=== PATIENT | male | born 1985 | race Caucasian/White ===

== ENCOUNTER 2017-09-23 11:09 | Inpatient (IN) | payer MEDICAID ==
[~2017-09-23] VITALS: Ht 175.3 cm; Wt 119.4 kg
[2017-09-23] MEDS ORDERED: ASPIRIN 81MG TABLET PO STA (11:21)
[2017-09-23] MEDS ORDERED: FUROSEMIDE 40MG/4ML VIAL IV STA (11:21)
[2017-09-23] MEDS ORDERED: NITROGLYCERIN OINT 1GM/INCH UDPKT TD STA (11:21)
[2017-09-23 11:49] LABS: BASOPHILS % 0.5 % (0.0-2.0); EOSINOPHILS % 0.9 % (0.0-5.0); HEMATOCRIT. 38.1 % (42.0-52.0); LYMPHOCYTES % 9.6 % (20.0-50.0); MEAN CORPUSCULAR VOLUME 69.3 fL (80.0-94.0); MONOCYTES % 14.9 % (2.0-8.0); NEUTROPHILS % 74.1 % (40.0-76.0); PLATELET 411 x1000/uL (130-400); RED BLOOD CELL COUNT 5.49 mill/uL (4.7-6.1); RED CELL DISTRIBUTION WIDTH 21.4 % (11.6-14.6)
[2017-09-23 11:50] LABS: BG BASE EXCESS 0.3 mmol/L (-2.0-2.0); BG BILEVEL POS AIRWAY PRESSURE 15/5; BG CARBOXYHEMOGLOBIN 1.7 % (0.5-1.5); BG DEOXYHEMOGLOBIN 2.4 % (0.0-5.0); BG HCO3 ACT 24.4 mmol/L (22.0-26.0); BG METHEMOGLOBIN 0.4 % (0.0-1.5); BG OXYGEN SATURATION 97.5 % (92.0-98.5); BG OXYHEMOGLOBIN 95.5 % (94.0-97.0); BG PCO2 37.3 mmHg (35.0-45.0); BG PH 7.433 (7.350-7.450); BG PO2 96.5 mmHg (75.0-100.0); BG SAMPLE SITE RIGHT RADIAL; BG TOTAL HEMOGLOBIN 12.4 g/dL (12.0-18.0); BG VENT MODE MASK - BIPAP; BG VENT RATE 20 set
[2017-09-23 11:56] LABS: INR 1.6; PARTIAL THROMBOPLASTIN TIME 31.3 sec (23.4-31.0); PROTHROMBIN TIME 16.8 sec (9.4-11.6)
[2017-09-23 12:03] LABS: CHLORIDE 97 mEq/L (98-107)
[2017-09-23 12:09] LABS: TROPONIN I 0.79 ng/mL (0.00-0.04)
[2017-09-23 12:35] LABS: PLATELET ESTIMATE INCREASED
[2017-09-23] MEDS ORDERED: IPRATROPIUM/ALBUTEROL 0.5-3(2.5)MG/3ML NEB HHN PRN (13:00)
[2017-09-23] MEDS ORDERED: DIPHENHYDRAMINE 50MG/ML VIAL IV PRN (13:45)
[2017-09-23] MEDS ORDERED: HYDROCODONE/ACETAMINOPHEN 5/325MG TABLET PO PRN (13:45)
[2017-09-23] MEDS ORDERED: IPRATROPIUM/ALBUTEROL 0.5-3(2.5)MG/3ML NEB INH PRN (13:45)
[2017-09-23] MEDS ORDERED: CLONIDINE 0.1MG TABLET PO PRN (13:45)
[2017-09-23] MEDS ORDERED: ONDANSETRON HCL 4MG/2ML VIAL IV PRN (13:45)
[2017-09-23 15:20] LABS: HEPATITIS B SURFACE ANTIGEN NEGATIVE
[2017-09-23 15:34] LABS: CREATINE KINASE MB FRACTION 2.9 ng/mL (0.5-3.6)
[2017-09-23 15:39] LABS: TROPONIN I 0.82 ng/mL (0.00-0.04)
[2017-09-23 15:48] LABS: HEPATITIS B CORE AB IGM NEGATIVE
[2017-09-23 15:50] LABS: HEPATITIS A AB IGM NEGATIVE (NEGATIVE)
[2017-09-23] MEDS ORDERED: ENOXAPARIN 150MG/ML SYR SUBCUT ONE (16:00)
[2017-09-23 16:48] VITALS: BP 154/93
[2017-09-23 17:00] VITALS: BP 154/93
[2017-09-23] MEDS ORDERED: INFLUENZA VIRUS VACCINE 0.5ML SYR IM ONE (17:30)
[2017-09-23] MEDS ORDERED: PNEUMOCOCCAL 23-VAL P-SAC VAC 0.5 ML IM ONE (17:30)
[2017-09-23] MEDS: FUROSEMIDE 40MG/4ML VIAL IVP SCH (18:09)
[2017-09-23 20:00] VITALS: BP 149/68
[2017-09-23] MEDS: ACETAMINOPHEN 325MG TABLET PO PRN (20:37)
[2017-09-23 21:00] VITALS: BP 133/50
[2017-09-23] MEDS: IPRATROPIUM/ALBUTEROL 0.5-3(2.5)MG/3ML NEB HHN SCH (21:23)
[2017-09-23] MEDS: CARVEDILOL 6.25 MG TABLET PO SCH (21:37)
[2017-09-23 22:00] VITALS: BP 127/65
[2017-09-23 23:30] LABS: CLARITY URINE CLEAR (CLEAR); COLOR URINE YELLOW (YELLOW); KETONES URINE NEGATIVE (NEGATIVE); LEUKOCYTE ESTERASE URINE NEGATIVE (NEGATIVE); NITRITE URINE NEGATIVE (NEGATIVE); OCCULT BLOOD URINE NEGATIVE (NEGATIVE); PROTEIN URINE NEGATIVE (NEGATIVE)
[2017-09-24] VITALS (15 sets, daily range): BP systolic 101–154; BP diastolic 51–98
[2017-09-24 00:21] LABS: *AMPHETAMINES SCREEN URINE NEGATIVE (NEGATIVE); *BARBITURATES SCREEN URINE NEGATIVE (NEGATIVE); *BENZODIAZEPINES SCREEN URINE NEGATIVE (NEGATIVE); *COCAINE SCREEN URINE NEGATIVE (NEGATIVE); CANNABINOID URINE SCREEN NEGATIVE (NEGATIVE); METHADONE URINE SCREEN NEGATIVE (NEGATIVE); OPIATES URINE SCREEN NEGATIVE (NEGATIVE); PHENCYCLIDINE URINE SCREEN NEGATIVE (NEGATIVE)
[2017-09-24] MEDS: IPRATROPIUM/ALBUTEROL 0.5-3(2.5)MG/3ML NEB HHN SCH ×6 (00:41→21:06)
[2017-09-24 05:56] LABS: INR 1.6; PROTHROMBIN TIME 16.8 sec (9.4-11.6)
[2017-09-24 06:24] LABS: HEMATOCRIT. 35.4 % (42.0-52.0); MEAN CORPUSCULAR HEMOGLOBIN 19.8 pg (28.0-32.0); MEAN CORPUSCULAR VOLUME 70.6 fL (80.0-94.0); MEAN PLATELET VOLUME 10.3 fl (7.4-10.4); PLATELET 348 x1000/uL (130-400); RED BLOOD CELL COUNT 5.02 mill/uL (4.7-6.1); RED CELL DISTRIBUTION WIDTH 21.1 % (11.6-14.6)
[2017-09-24] MEDS: FUROSEMIDE 40MG/4ML VIAL IVP SCH ×2 (06:57→17:24)
[2017-09-24 07:51] LABS: BG BILEVEL POS AIRWAY PRESSURE ST=15/5; BG CARBOXYHEMOGLOBIN 1.3 % (0.5-1.5); BG FRACTION INSPIRED OXYGEN 50; BG HCO3 ACT 30.9 mmol/L (22.0-26.0); BG METHEMOGLOBIN 0.3 % (0.0-1.5); BG OXYHEMOGLOBIN 96.4 % (94.0-97.0); BG PH 7.344 (7.350-7.450); BG PO2 105.8 mmHg (75.0-100.0); BG PRESSURE SUPPORT 10; BG SAMPLE SITE RIGHT RADIAL; BG VENT MODE MASK - BIPAP; BG VENT RATE 20 set
[2017-09-24] MEDS: CARVEDILOL 6.25 MG TABLET PO SCH ×2 (08:11→21:49)
[2017-09-24 08:17] LABS: PLATELET ESTIMATE NORMAL
[2017-09-24 08:53] LABS: CHLORIDE 99 mEq/L (98-107); HDL CHOLESTEROL 7 mg/dL (40-59); LDL CHOLESTEROL 44 mg/dL (5-100)
[2017-09-24] MEDS ORDERED: SODIUM CHLORIDE 0.9% 10ML VIAL ONE (13:04)
[2017-09-25] VITALS (27 sets, daily range): BP systolic 79–142; BP diastolic 40–101
[2017-09-25] MEDS: IPRATROPIUM/ALBUTEROL 0.5-3(2.5)MG/3ML NEB HHN SCH ×6 (00:46→20:21)
[2017-09-25 06:18] LABS: HEMATOCRIT. 33.5 % (42.0-52.0); HEMOGLOBIN. 9.6 g/dL (14.0-18.0); MEAN CORPUSCULAR HEMOGLOBIN 20.3 pg (28.0-32.0); MEAN CORPUSCULAR VOLUME 70.8 fL (80.0-94.0); MEAN PLATELET VOLUME 10.2 fl (7.4-10.4); PLATELET 385 x1000/uL (130-400); RED BLOOD CELL COUNT 4.73 mill/uL (4.7-6.1); RED CELL DISTRIBUTION WIDTH 20.7 % (11.6-14.6)
[2017-09-25] MEDS: FUROSEMIDE 40MG/4ML VIAL IVP SCH (06:22)
[2017-09-25 06:40] LABS: CHLORIDE 92 mEq/L (98-107)
[2017-09-25 08:41] LABS: BG BASE EXCESS 4.9 mmol/L (-2.0-2.0); BG CARBOXYHEMOGLOBIN 1.3 % (0.5-1.5); BG DEOXYHEMOGLOBIN 7.6 % (0.0-5.0); BG FRACTION INSPIRED OXYGEN 50; BG METHEMOGLOBIN 0.2 % (0.0-1.5); BG OXYGEN SATURATION 92.3 % (92.0-98.5); BG OXYHEMOGLOBIN 90.9 % (94.0-97.0); BG PCO2 53.4 mmHg (35.0-45.0); BG PH 7.382 (7.350-7.450); BG PO2 66.3 mmHg (75.0-100.0); BG SAMPLE SITE RIGHT RADIAL; BG VENT MODE MASK - VENTI
[2017-09-25] MEDS: CARVEDILOL 6.25 MG TABLET PO SCH ×2 (08:57→20:24)
[2017-09-25] MEDS ORDERED: MAGNESIUM 2 G PREMIX 50 ML IV ONE (10:30)
[2017-09-25] MEDS: LISINOPRIL 2.5MG TABLET PO SCH (10:45)
[2017-09-25] MEDS: ENOXAPARIN 40MG/0.4ML SYR SUBCUT SCH ×2 (10:46→20:23)
[2017-09-25] MEDS ORDERED: MAGNESIUM 2 G PREMIX 50 ML IV NR (12:00)
[2017-09-25] MEDS: CEFEPIME 1,000 MG in DEXTROSE 5% WATER 50 ML IV SCH ×2 (12:17→23:13)
[2017-09-25] MEDS ORDERED: METRONIDAZOLE 500 MG PREMIX 100 ML IV SCH (14:00)
[2017-09-25 14:09] LABS: BG BASE EXCESS 0.7 mmol/L (-2.0-2.0); BG CARBOXYHEMOGLOBIN 1.5 % (0.5-1.5); BG DEOXYHEMOGLOBIN 5.1 % (0.0-5.0); BG FRACTION INSPIRED OXYGEN 21; BG HCO3 ACT 27.2 mmol/L (22.0-26.0); BG METHEMOGLOBIN 0.3 % (0.0-1.5); BG OXYGEN SATURATION 94.8 % (92.0-98.5); BG OXYHEMOGLOBIN 93.1 % (94.0-97.0); BG PCO2 52.2 mmHg (35.0-45.0); BG PH 7.335 (7.350-7.450); BG SAMPLE SITE RIGHT BRACHIAL; BG TOTAL HEMOGLOBIN 11.1 g/dL (12.0-18.0); BG VENT MODE ROOM AIR
[2017-09-25 14:49] LABS: PLATELET ESTIMATE NORMAL
[2017-09-25] MEDS: METRONIDAZOLE 500 MG PREMIX 100 ML IV SCH ×2 (16:59→23:13)
[2017-09-26] VITALS (119 sets, daily range): BP systolic 76–170; BP diastolic 35–105
[2017-09-26] MEDS: IPRATROPIUM/ALBUTEROL 0.5-3(2.5)MG/3ML NEB HHN SCH ×6 (00:29→20:11)
[2017-09-26 05:31] LABS: HEMATOCRIT. 33.4 % (42.0-52.0); HEMOGLOBIN. 9.4 g/dL (14.0-18.0); MEAN CORPUSCULAR VOLUME 70.9 fL (80.0-94.0); PLATELET 398 x1000/uL (130-400); RED BLOOD CELL COUNT 4.71 mill/uL (4.7-6.1); RED CELL DISTRIBUTION WIDTH 21.4 % (11.6-14.6)
[2017-09-26 05:50] LABS: CHLORIDE 94 mEq/L (98-107)
[2017-09-26] MEDS ORDERED: EPINEPHRINE 0.1MG/ML (1:10,000) 10ML SYR ONE (07:37)
[2017-09-26] MEDS ORDERED: ETOMIDATE 2MG/ML 10ML VIAL IV ONE (07:37)
[2017-09-26] MEDS ORDERED: SUCCINYLCHOLINE CHLORIDE 200MG/10ML VIAL IV ONE (07:37)
[2017-09-26] MEDS: METRONIDAZOLE 500 MG PREMIX 100 ML IV SCH ×3 (08:30→23:31)
[2017-09-26 08:59] LABS: NUCLEATED RED BLOOD CELLS 2 /100 WBC; PLATELET ESTIMATE NORMAL
[2017-09-26] MEDS: CARVEDILOL 6.25 MG TABLET PO SCH ×2 (09:00→21:00)
[2017-09-26] MEDS: LISINOPRIL 2.5MG TABLET PO SCH (09:00)
[2017-09-26] MEDS: FUROSEMIDE 40MG/4ML VIAL IVP SCH (10:03)
[2017-09-26] MEDS: ENOXAPARIN 40MG/0.4ML SYR SUBCUT SCH (10:03)
[2017-09-26 10:11] LABS: BG BASE EXCESS 8.1 mmol/L (-2.0-2.0); BG BILEVEL POS AIRWAY PRESSURE ST=18/5; BG CARBOXYHEMOGLOBIN 1.2 % (0.5-1.5); BG DEOXYHEMOGLOBIN 3.7 % (0.0-5.0); BG FRACTION INSPIRED OXYGEN 45; BG HCO3 ACT 34.6 mmol/L (22.0-26.0); BG METHEMOGLOBIN 0.2 % (0.0-1.5); BG OXYGEN SATURATION 96.2 % (92.0-98.5); BG OXYHEMOGLOBIN 94.9 % (94.0-97.0); BG PH 7.386 (7.350-7.450); BG PO2 84.5 mmHg (75.0-100.0); BG PRESSURE SUPPORT 13; BG SAMPLE SITE RIGHT RADIAL; BG TOTAL HEMOGLOBIN 10.7 g/dL (12.0-18.0); BG VENT MODE MASK - BIPAP; BG VENT RATE 24 set
[2017-09-26] MEDS: PROPOFOL 10MG/ML 100ML 100 ML IV PRN ×5 (12:26→23:47)
[2017-09-26] MEDS: CEFEPIME 1,000 MG in DEXTROSE 5% WATER 50 ML IV SCH ×2 (12:58→23:31)
[2017-09-26 13:26] LABS: BG BASE EXCESS 7.7 mmol/L (-2.0-2.0); BG CARBOXYHEMOGLOBIN 1.1 % (0.5-1.5); BG DEOXYHEMOGLOBIN 6.3 % (0.0-5.0); BG FRACTION INSPIRED OXYGEN 100; BG HCO3 ACT 33.9 mmol/L (22.0-26.0); BG METHEMOGLOBIN 0.2 % (0.0-1.5); BG OXYGEN SATURATION 93.6 % (92.0-98.5); BG OXYHEMOGLOBIN 92.4 % (94.0-97.0); BG PCO2 56.7 mmHg (35.0-45.0); BG PH 7.395 (7.350-7.450); BG PO2 68.9 mmHg (75.0-100.0); BG SAMPLE SITE RIGHT RADIAL; BG TIDAL VOLUME(mL) 550 mL; BG TOTAL HEMOGLOBIN 10.6 g/dL (12.0-18.0); BG VENT MODE VENT - A/C; BG VENT RATE 18 set
[2017-09-26] MEDS ORDERED: FENTANYL CITRATE/PF 500 MCG in SODIUM CHLORIDE 0.9% 40 ML IV PRN (14:30)
[2017-09-26] MEDS: NOREPINEPHRINE 16 MG in DEXT 5% WATER 234 ML IV PRN (14:36)
[2017-09-26 16:18] LABS: BG BASE EXCESS 6.9 mmol/L (-2.0-2.0); BG CARBOXYHEMOGLOBIN 1.2 % (0.5-1.5); BG DEOXYHEMOGLOBIN 2.5 % (0.0-5.0); BG FRACTION INSPIRED OXYGEN 60; BG HCO3 ACT 31.6 mmol/L (22.0-26.0); BG METHEMOGLOBIN 0.1 % (0.0-1.5); BG OXYGEN SATURATION 97.5 % (92.0-98.5); BG OXYHEMOGLOBIN 96.2 % (94.0-97.0); BG PCO2 45.4 mmHg (35.0-45.0); BG SAMPLE SITE RIGHT RADIAL; BG TIDAL VOLUME(mL) 550 mL; BG TOTAL HEMOGLOBIN 11.1 g/dL (12.0-18.0); BG VENT MODE VENT - A/C; BG VENT RATE 18 set
[2017-09-26] MEDS ORDERED: FAMOTIDINE 20MG TABLET PO SCH (17:00)
[2017-09-26] MEDS ORDERED: AMIODARONE HCL 50MG/ML 3ML VIAL IV ONE (22:15)
[2017-09-26] MEDS ORDERED: AMIODARONE HCL 150 MG in DEXT 5% WATER 100 ML IV NR (22:30)
[2017-09-26] MEDS ORDERED: AMIODARONE IN DEXTROSE,ISO-OSM 100 ML IV NR (22:30)
[2017-09-26] MEDS: AMIODARONE HCL 900 MG in DEXT 5% WATER 482 ML IV PRN (23:21)
[2017-09-27] VITALS (99 sets, daily range): BP systolic 84–133; BP diastolic 32–78
[2017-09-27 00:18] LABS: BG BASE EXCESS 8.9 mmol/L (-2.0-2.0); BG CARBOXYHEMOGLOBIN 0.9 % (0.5-1.5); BG DEOXYHEMOGLOBIN 0.3 % (0.0-5.0); BG FRACTION INSPIRED OXYGEN 100; BG HCO3 ACT 32.7 mmol/L (22.0-26.0); BG METHEMOGLOBIN 0.3 % (0.0-1.5); BG OXYGEN SATURATION 99.7 % (92.0-98.5); BG OXYHEMOGLOBIN 98.5 % (94.0-97.0); BG PCO2 41.7 mmHg (35.0-45.0); BG PH 7.512 (7.350-7.450); BG PO2 183.9 mmHg (75.0-100.0); BG SAMPLE SITE RIGHT RADIAL; BG TIDAL VOLUME(mL) 550 mL; BG TOTAL HEMOGLOBIN 10.8 g/dL (12.0-18.0); BG VENT MODE VENT - A/C; BG VENT RATE 18 set
[2017-09-27] MEDS: PROPOFOL 10MG/ML 100ML 100 ML IV PRN ×5 (01:49→23:47)
[2017-09-27] MEDS: IPRATROPIUM/ALBUTEROL 0.5-3(2.5)MG/3ML NEB HHN SCH ×6 (04:21→23:46)
[2017-09-27] MEDS: FENTANYL CITRATE/PF 1,000 MCG in SODIUM CHLORIDE 0.9% 80 ML IV PRN ×2 (06:50→23:42)
[2017-09-27 08:52] LABS: HEMATOCRIT 36.1 % (42.0-52.0); HEMOGLOBIN 10.3 g/dL (14.0-18.0); MEAN CORPUSCULAR VOLUME 70.1 fL (80.0-94.0); PLATELET 500 x1000/uL (130-400); RED BLOOD CELL COUNT 5.15 mill/uL (4.7-6.1); RED CELL DISTRIBUTION WIDTH 20.8 % (11.6-14.6)
[2017-09-27] MEDS: METRONIDAZOLE 500 MG PREMIX 100 ML IV SCH ×3 (08:53→23:42)
[2017-09-27 08:56] LABS: INR 1.6; PARTIAL THROMBOPLASTIN TIME 31.7 sec (23.4-31.0); PROTHROMBIN TIME 16.8 sec (9.4-11.6)
[2017-09-27 08:59] LABS: AMMONIA 52 uMol/L (<32); CHLORIDE 96 mEq/L (98-107); PHOSPHORUS 3.6 mg/dL (2.5-4.9)
[2017-09-27] MEDS: CARVEDILOL 6.25 MG TABLET PO SCH ×2 (09:00→21:00)
[2017-09-27] MEDS: LISINOPRIL 2.5MG TABLET PO SCH ×2 (09:00→09:24)
[2017-09-27] MEDS: FUROSEMIDE 40MG/4ML VIAL IVP SCH (09:24)
[2017-09-27] MEDS ORDERED: MAGNESIUM 4 G PREMIX 100 ML IV NR (09:30)
[2017-09-27 09:40] LABS: BG BASE EXCESS 5.3 mmol/L (-2.0-2.0); BG CARBOXYHEMOGLOBIN 0.5 % (0.5-1.5); BG DEOXYHEMOGLOBIN 1.5 % (0.0-5.0); BG FRACTION INSPIRED OXYGEN 90; BG HCO3 ACT 31.2 mmol/L (22.0-26.0); BG METHEMOGLOBIN 0.1 % (0.0-1.5); BG OXYGEN SATURATION 98.5 % (92.0-98.5); BG OXYHEMOGLOBIN 97.9 % (94.0-97.0); BG PCO2 52.2 mmHg (35.0-45.0); BG PH 7.394 (7.350-7.450); BG PO2 126.6 mmHg (75.0-100.0); BG SAMPLE SITE RIGHT RADIAL; BG TIDAL VOLUME(mL) 500 mL; BG TOTAL HEMOGLOBIN 10.8 g/dL (12.0-18.0); BG VENT MODE VENT - A/C; BG VENT RATE 14 set
[2017-09-27] MEDS ORDERED: POTASSIUM CHLORIDE INJ 40 MEQ in DEXT 5% WATER 250 ML IV NR (10:00)
[2017-09-27] MEDS: NOREPINEPHRINE 16 MG in DEXT 5% WATER 234 ML IV PRN (12:04)
[2017-09-27] MEDS: CEFEPIME 1,000 MG in DEXTROSE 5% WATER 50 ML IV SCH ×2 (12:45→23:42)
[2017-09-27] MEDS ORDERED: LIDOCAINE HCL 2% 5ML SYRINGE IV PRN (15:00)
[2017-09-27] MEDS ORDERED: LIDOCAINE 2G PREMIX 500 ML IV PRN (15:00)
[2017-09-27 17:11] LABS: CHLORIDE 97 mEq/L (98-107); PHOSPHORUS 2.8 mg/dL (2.5-4.9)
[2017-09-27] MEDS ORDERED: POTASSIUM CHLORIDE INJ 40 MEQ in DEXT 5% WATER 250 ML IV SCH (18:00)
[2017-09-27] MEDS ORDERED: MAGNESIUM 4 G PREMIX 100 ML IV SCH (18:00)
[2017-09-27] MEDS: AMIODARONE HCL 900 MG in DEXT 5% WATER 482 ML IV PRN (23:43)
[2017-09-27] MEDS: FAMOTIDINE 20MG/2ML VIAL IV SCH (23:46)
[2017-09-28] VITALS (100 sets, daily range): BP systolic 66–138; BP diastolic 30–85
[2017-09-28] MEDS: PROPOFOL 10MG/ML 100ML 100 ML IV PRN ×6 (03:47→23:24)
[2017-09-28] MEDS: IPRATROPIUM/ALBUTEROL 0.5-3(2.5)MG/3ML NEB HHN SCH ×5 (04:00→20:43)
[2017-09-28 04:39] LABS: HEMATOCRIT. 36.6 % (42.0-52.0); HEMOGLOBIN. 10.7 g/dL (14.0-18.0); MEAN CORPUSCULAR HEMOGLOBIN 20.3 pg (28.0-32.0); MEAN CORPUSCULAR VOLUME 69.7 fL (80.0-94.0); MEAN PLATELET VOLUME 9.1 fl (7.4-10.4); PLATELET 523 x1000/uL (130-400); RED BLOOD CELL COUNT 5.26 mill/uL (4.7-6.1); RED CELL DISTRIBUTION WIDTH 21.3 % (11.6-14.6)
[2017-09-28 05:06] LABS: CHLORIDE 98 mEq/L (98-107)
[2017-09-28] MEDS ORDERED: ACETAMINOPHEN 650MG SUPP PR PRN (06:30)
[2017-09-28] MEDS ORDERED: SODIUM BICARBONATE 4% (2.4MEQ) 5ML VIAL IV ONE (07:25)
[2017-09-28] MEDS: METRONIDAZOLE 500 MG PREMIX 100 ML IV SCH ×3 (07:56→23:16)
[2017-09-28 08:21] LABS: BG BASE EXCESS 8.9 mmol/L (-2.0-2.0); BG CARBOXYHEMOGLOBIN 1.1 % (0.5-1.5); BG DEOXYHEMOGLOBIN 3.6 % (0.0-5.0); BG FRACTION INSPIRED OXYGEN 70; BG HCO3 ACT 34.8 mmol/L (22.0-26.0); BG METHEMOGLOBIN 0.4 % (0.0-1.5); BG OXYGEN SATURATION 96.3 % (92.0-98.5); BG OXYHEMOGLOBIN 94.9 % (94.0-97.0); BG PCO2 54.1 mmHg (35.0-45.0); BG PH 7.426 (7.350-7.450); BG PO2 84.2 mmHg (75.0-100.0); BG SAMPLE SITE RIGHT RADIAL; BG TIDAL VOLUME(mL) 550 mL; BG TOTAL HEMOGLOBIN 11.3 g/dL (12.0-18.0); BG VENT MODE VENT - A/C; BG VENT RATE 14 set
[2017-09-28 08:54] LABS: INR 1.6; PROTHROMBIN TIME 16.4 sec (9.4-11.6)
[2017-09-28] MEDS: LISINOPRIL 2.5MG TABLET PO SCH (09:00)
[2017-09-28] MEDS: CARVEDILOL 6.25 MG TABLET PO SCH ×2 (09:00→19:56)
[2017-09-28] MEDS: FUROSEMIDE 40MG/4ML VIAL IVP SCH (09:30)
[2017-09-28] MEDS: FAMOTIDINE 20MG/2ML VIAL IV SCH ×2 (09:30→20:02)
[2017-09-28] MEDS: FENTANYL CITRATE/PF 1,000 MCG in SODIUM CHLORIDE 0.9% 80 ML IV PRN ×2 (09:30→19:57)
[2017-09-28] MEDS ORDERED: POTASSIUM CHLORIDE 20MEQ TABLET SR PO SCH (10:30)
[2017-09-28] MEDS ORDERED: POTASSIUM CHLORIDE 20MEQ/PACKET PO NR (10:45)
[2017-09-28 11:18] LABS: PLATELET ESTIMATE INCREASED
[2017-09-28] MEDS: NOREPINEPHRINE 16 MG in DEXT 5% WATER 234 ML IV PRN (11:30)
[2017-09-28 12:08] LABS: INR 1.5; PROTHROMBIN TIME 15.8 sec (9.4-11.6)
[2017-09-28] MEDS ORDERED: MAGNESIUM 4 G PREMIX 100 ML IV NR (13:00)
[2017-09-28] MEDS: CEFEPIME 1,000 MG in DEXTROSE 5% WATER 50 ML IV SCH ×2 (13:24→23:16)
[2017-09-29] VITALS (92 sets, daily range): BP systolic 96–145; BP diastolic 33–88
[2017-09-29] MEDS: IPRATROPIUM/ALBUTEROL 0.5-3(2.5)MG/3ML NEB HHN SCH ×6 (00:29→21:14)
[2017-09-29] MEDS: PROPOFOL 10MG/ML 100ML 100 ML IV PRN ×4 (00:30→08:09)
[2017-09-29] MEDS: AMIODARONE HCL 900 MG in DEXT 5% WATER 482 ML IV PRN (00:32)
[2017-09-29] MEDS: NOREPINEPHRINE 16 MG in DEXT 5% WATER 234 ML IV PRN (02:45)
[2017-09-29 04:54] LABS: BASOPHILS % 0.9 % (0.0-2.0); EOSINOPHILS % 3.7 % (0.0-5.0); HEMATOCRIT. 36.7 % (42.0-52.0); HEMOGLOBIN. 10.4 g/dL (14.0-18.0); LYMPHOCYTES % 13.6 % (20.0-50.0); MEAN CORPUSCULAR VOLUME 70.7 fL (80.0-94.0); MONOCYTES % 14.8 % (2.0-8.0); PLATELET 514 x1000/uL (130-400); RED BLOOD CELL COUNT 5.19 mill/uL (4.7-6.1); RED CELL DISTRIBUTION WIDTH 21.6 % (11.6-14.6)
[2017-09-29 05:08] LABS: CHLORIDE 100 mEq/L (98-107)
[2017-09-29] MEDS: FENTANYL CITRATE/PF 1,000 MCG in SODIUM CHLORIDE 0.9% 80 ML IV PRN ×2 (05:19→18:38)
[2017-09-29] MEDS ORDERED: KCL 20MEQ/100ML PREMIX 100 ML IV NR (07:30)
[2017-09-29] MEDS ORDERED: MAGNESIUM 2 G PREMIX 50 ML IV NR ×2 (07:45→09:00)
[2017-09-29] MEDS: FUROSEMIDE 40MG/4ML VIAL IVP SCH (08:22)
[2017-09-29] MEDS: FAMOTIDINE 20MG/2ML VIAL IV SCH ×2 (08:22→20:34)
[2017-09-29] MEDS: METRONIDAZOLE 500 MG PREMIX 100 ML IV SCH ×2 (08:22→15:55)
[2017-09-29] MEDS: POTASSIUM CHLORIDE 20MEQ/PACKET PO SCH (08:23)
[2017-09-29] MEDS: LISINOPRIL 2.5MG TABLET PO SCH (08:23)
[2017-09-29] MEDS: CARVEDILOL 6.25 MG TABLET PO SCH ×2 (08:23→20:34)
[2017-09-29 10:27] LABS: BG BASE EXCESS 10.8 mmol/L (-2.0-2.0); BG DEOXYHEMOGLOBIN 5.7 % (0.0-5.0); BG FRACTION INSPIRED OXYGEN 50; BG HCO3 ACT 35.2 mmol/L (22.0-26.0); BG METHEMOGLOBIN 0.6 % (0.0-1.5); BG OXYGEN SATURATION 94.2 % (92.0-98.5); BG OXYHEMOGLOBIN 92.7 % (94.0-97.0); BG PCO2 45.5 mmHg (35.0-45.0); BG PH 7.506 (7.350-7.450); BG PO2 66.7 mmHg (75.0-100.0); BG SAMPLE SITE RIGHT RADIAL; BG TIDAL VOLUME(mL) 550 mL; BG VENT MODE VENT - A/C; BG VENT RATE 14 set
[2017-09-29] MEDS: CEFEPIME 1,000 MG in DEXTROSE 5% WATER 50 ML IV SCH (11:14)
[2017-09-29] MEDS ORDERED: MIDAZOLAM HCL 100 MG in DEXT 5% WATER 80 ML IV PRN (11:45)
[2017-09-29] MEDS: MIDAZOLAM HCL 100 MG in SODIUM CHLORIDE 0.9% 80 ML IV PRN ×2 (12:29→21:07)
[2017-09-29] MEDS ORDERED: LIDOCAINE HCL 1% 20ML VIAL (Pyxis) INJ ONE (13:43)
[2017-09-29] MEDS: AMIODARONE HCL 200 MG TABLET PO SCH ×2 (15:54→23:25)
[2017-09-29] MEDS: ENOXAPARIN 40MG/0.4ML SYR SUBCUT SCH ×2 (15:55→23:25)
[2017-09-29 18:09] LABS: CHLORIDE 101 mEq/L (98-107); PHOSPHORUS 2.4 mg/dL (2.5-4.9)
[2017-09-30] VITALS (91 sets, daily range): BP systolic 94–132; BP diastolic 32–75
[2017-09-30] MEDS: IPRATROPIUM/ALBUTEROL 0.5-3(2.5)MG/3ML NEB HHN SCH ×5 (00:44→20:32)
[2017-09-30] MEDS: METRONIDAZOLE 500 MG PREMIX 100 ML IV SCH ×4 (00:58→23:53)
[2017-09-30] MEDS: CEFEPIME 1,000 MG in DEXTROSE 5% WATER 50 ML IV SCH ×3 (00:58→23:53)
[2017-09-30 05:25] LABS: BASOPHILS % 0.6 % (0.0-2.0); EOSINOPHILS % 2.4 % (0.0-5.0); HEMATOCRIT. 35.3 % (42.0-52.0); LYMPHOCYTES % 9.4 % (20.0-50.0); MEAN CORPUSCULAR VOLUME 70.6 fL (80.0-94.0); MEAN PLATELET VOLUME 8.8 fl (7.4-10.4); MONOCYTES % 11.1 % (2.0-8.0); NEUTROPHILS % 76.5 % (40.0-76.0); PLATELET 475 x1000/uL (130-400); RED CELL DISTRIBUTION WIDTH 21.8 % (11.6-14.6)
[2017-09-30] MEDS: AMIODARONE HCL 200 MG TABLET PO SCH ×3 (05:43→23:53)
[2017-09-30 06:01] LABS: CHLORIDE 102 mEq/L (98-107)
[2017-09-30] MEDS ORDERED: MAGNESIUM 4 G PREMIX 100 ML IV ONE (07:00)
[2017-09-30 07:20] LABS: BG CARBOXYHEMOGLOBIN 1.2 % (0.5-1.5); BG DEOXYHEMOGLOBIN 4.2 % (0.0-5.0); BG HCO3 ACT 31.4 mmol/L (22.0-26.0); BG METHEMOGLOBIN 0.3 % (0.0-1.5); BG OXYGEN SATURATION 95.7 % (92.0-98.5); BG OXYHEMOGLOBIN 94.3 % (94.0-97.0); BG PCO2 43.7 mmHg (35.0-45.0); BG PH 7.474 (7.350-7.450); BG PO2 74.9 mmHg (75.0-100.0); BG SAMPLE SITE RIGHT RADIAL; BG TIDAL VOLUME(mL) 550 mL; BG TOTAL HEMOGLOBIN 11.3 g/dL (12.0-18.0); BG VENT MODE VENT - A/C; BG VENT RATE 14 set
[2017-09-30] MEDS ORDERED: POTASSIUM CHLORIDE INJ 40 MEQ in DEXT 5% WATER 250 ML IV ONE (07:30)
[2017-09-30] MEDS: FUROSEMIDE 40MG/4ML VIAL IVP SCH (08:45)
[2017-09-30] MEDS: POTASSIUM CHLORIDE 20MEQ/PACKET PO SCH ×2 (08:45→17:22)
[2017-09-30] MEDS: FAMOTIDINE 20MG/2ML VIAL IV SCH ×2 (08:45→20:14)
[2017-09-30] MEDS: ENOXAPARIN 40MG/0.4ML SYR SUBCUT SCH ×2 (08:46→20:14)
[2017-09-30] MEDS: CARVEDILOL 6.25 MG TABLET PO SCH (08:46)
[2017-09-30] MEDS: LISINOPRIL 2.5MG TABLET PO SCH (08:46)
[2017-09-30 09:24] LABS: CHLORIDE 102 mEq/L (98-107); PHOSPHORUS 2.3 mg/dL (2.5-4.9)
[2017-09-30] MEDS: METOCLOPRAMIDE 10MG/10 ML UDC GT SCH ×3 (11:54→23:53)
[2017-09-30] MEDS: AMIODARONE HCL 900 MG in DEXT 5% WATER 482 ML IV PRN (12:02)
[2017-09-30] MEDS: NOREPINEPHRINE 16 MG in DEXT 5% WATER 234 ML IV PRN (15:07)
[2017-09-30] MEDS: MAGNESIUM GLUCONATE 500MG TABLET PO SCH (15:39)
[2017-09-30 19:32] LABS: CHLORIDE 104 mEq/L (98-107)
[2017-10-01] VITALS (85 sets, daily range): BP systolic 89–118; BP diastolic 33–73
[2017-10-01] MEDS: IPRATROPIUM/ALBUTEROL 0.5-3(2.5)MG/3ML NEB HHN SCH ×5 (01:17→21:10)
[2017-10-01] MEDS: AMIODARONE HCL 200 MG TABLET PO SCH ×3 (05:57→22:02)
[2017-10-01] MEDS: METOCLOPRAMIDE 10MG/10 ML UDC GT SCH ×4 (05:58→23:46)
[2017-10-01 06:27] LABS: CHLORIDE 105 mEq/L (98-107); PHOSPHORUS 2.8 mg/dL (2.5-4.9)
[2017-10-01 07:50] LABS: BG BASE EXCESS 7.4 mmol/L (-2.0-2.0); BG CARBOXYHEMOGLOBIN 0.6 % (0.5-1.5); BG DEOXYHEMOGLOBIN 4.4 % (0.0-5.0); BG FRACTION INSPIRED OXYGEN 40; BG HCO3 ACT 32.5 mmol/L (22.0-26.0); BG METHEMOGLOBIN 0.3 % (0.0-1.5); BG OXYGEN SATURATION 95.6 % (92.0-98.5); BG OXYHEMOGLOBIN 94.7 % (94.0-97.0); BG PCO2 48.5 mmHg (35.0-45.0); BG PH 7.444 (7.350-7.450); BG PO2 76.2 mmHg (75.0-100.0); BG SAMPLE SITE RIGHT RADIAL; BG TIDAL VOLUME(mL) 550 mL; BG TOTAL HEMOGLOBIN 10.6 g/dL (12.0-18.0); BG VENT MODE VENT - A/C; BG VENT RATE 12 set
[2017-10-01] MEDS: FAMOTIDINE 20MG/2ML VIAL IV SCH ×2 (08:19→22:04)
[2017-10-01] MEDS: POTASSIUM CHLORIDE 20MEQ/PACKET PO SCH ×2 (08:19→17:28)
[2017-10-01] MEDS: METRONIDAZOLE 500 MG PREMIX 100 ML IV SCH ×3 (08:19→23:42)
[2017-10-01] MEDS: FUROSEMIDE 20MG TABLET PO SCH (08:19)
[2017-10-01] MEDS: MAGNESIUM GLUCONATE 500MG TABLET PO SCH (08:19)
[2017-10-01] MEDS: ENOXAPARIN 40MG/0.4ML SYR SUBCUT SCH ×2 (09:32→22:04)
[2017-10-01 10:53] LABS: BG BASE EXCESS 7.1 mmol/L (-2.0-2.0); BG CARBOXYHEMOGLOBIN 1.2 % (0.5-1.5); BG DEOXYHEMOGLOBIN 5.3 % (0.0-5.0); BG FRACTION INSPIRED OXYGEN 40; BG HCO3 ACT 34.4 mmol/L (22.0-26.0); BG METHEMOGLOBIN 0.2 % (0.0-1.5); BG OXYGEN SATURATION 94.6 % (92.0-98.5); BG OXYHEMOGLOBIN 93.3 % (94.0-97.0); BG PCO2 63.5 mmHg (35.0-45.0); BG PH 7.352 (7.350-7.450); BG PO2 80.7 mmHg (75.0-100.0); BG PRESSURE SUPPORT 8; BG SAMPLE SITE RIGHT RADIAL; BG TOTAL HEMOGLOBIN 11.3 g/dL (12.0-18.0); BG VENT MODE VENT - CPAP
[2017-10-01] MEDS: CEFEPIME 1,000 MG in DEXTROSE 5% WATER 50 ML IV SCH (12:57)
[2017-10-01 17:14] LABS: CHLORIDE 105 mEq/L (98-107)
[2017-10-01 17:19] LABS: PHOSPHORUS 3.7 mg/dL (2.5-4.9)
[2017-10-01] MEDS: MAGNESIUM GLUCONATE 500MG TABLET NG SCH (17:28)
[2017-10-02] VITALS (87 sets, daily range): BP systolic 98–161; BP diastolic 38–119
[2017-10-02] MEDS: CEFEPIME 1,000 MG in DEXTROSE 5% WATER 50 ML IV SCH ×2 (00:52→13:46)
[2017-10-02] MEDS: IPRATROPIUM/ALBUTEROL 0.5-3(2.5)MG/3ML NEB HHN SCH ×6 (01:01→20:14)
[2017-10-02] MEDS: AMIODARONE HCL 200 MG TABLET PO SCH ×3 (05:57→21:06)
[2017-10-02] MEDS: METOCLOPRAMIDE 10MG/10 ML UDC GT SCH ×3 (05:57→17:20)
[2017-10-02 06:12] LABS: CHLORIDE 105 mEq/L (98-107); PHOSPHORUS 3.5 mg/dL (2.5-4.9)
[2017-10-02] MEDS: FUROSEMIDE 20MG TABLET PO SCH (08:15)
[2017-10-02] MEDS: POTASSIUM CHLORIDE 20MEQ/PACKET PO SCH ×2 (08:15→16:32)
[2017-10-02] MEDS: MAGNESIUM GLUCONATE 500MG TABLET NG SCH ×2 (08:15→16:32)
[2017-10-02] MEDS: METRONIDAZOLE 500 MG PREMIX 100 ML IV SCH ×2 (08:15→16:32)
[2017-10-02] MEDS: FAMOTIDINE 20MG/2ML VIAL IV SCH ×2 (08:15→21:06)
[2017-10-02] MEDS: ENOXAPARIN 40MG/0.4ML SYR SUBCUT SCH ×2 (08:16→21:06)
[2017-10-02 09:22] LABS: BG BASE EXCESS 5.3 mmol/L (-2.0-2.0); BG CARBOXYHEMOGLOBIN 1.2 % (0.5-1.5); BG DEOXYHEMOGLOBIN 11.5 % (0.0-5.0); BG HCO3 ACT 32.6 mmol/L (22.0-26.0); BG METHEMOGLOBIN 0.2 % (0.0-1.5); BG OXYGEN SATURATION 88.3 % (92.0-98.5); BG OXYHEMOGLOBIN 87.1 % (94.0-97.0); BG PCO2 61.8 mmHg (35.0-45.0); BG PO2 58.6 mmHg (75.0-100.0); BG PRESSURE SUPPORT 0; BG SAMPLE SITE RIGHT RADIAL; BG TIDAL VOLUME(mL) 0 mL; BG TOTAL HEMOGLOBIN 11.8 g/dL (12.0-18.0); BG TOTAL RESPIRATORY RATE 0 b/min; BG VENT MODE NASAL CANNULA; BG VENT RATE 0 set
[2017-10-02] MEDS ORDERED: FUROSEMIDE 100MG/10ML VIAL IVP SCH ×2 (10:00)
[2017-10-02] MEDS: POTASSIUM CHLORIDE 20MEQ TABLET SR PO SCH (10:29)
[2017-10-02] MEDS: FUROSEMIDE 40MG/4ML VIAL IVP SCH (16:32)
[2017-10-02] MEDS: LACTULOSE 20G/30ML UDC PO SCH (16:35)
[2017-10-03] VITALS (63 sets, daily range): BP systolic 94–152; BP diastolic 33–105
[2017-10-03] MEDS: IPRATROPIUM/ALBUTEROL 0.5-3(2.5)MG/3ML NEB HHN SCH ×6 (00:07→20:10)
[2017-10-03] MEDS: CEFEPIME 1,000 MG in DEXTROSE 5% WATER 50 ML IV SCH ×2 (00:31→11:55)
[2017-10-03] MEDS: METOCLOPRAMIDE 10MG/10 ML UDC GT SCH ×4 (00:31→17:04)
[2017-10-03 05:33] LABS: HEMATOCRIT. 36.5 % (42.0-52.0); HEMOGLOBIN. 10.3 g/dL (14.0-18.0); MEAN CORPUSCULAR HEMOGLOBIN 20.2 pg (28.0-32.0); MEAN PLATELET VOLUME 9.3 fl (7.4-10.4); PLATELET 452 x1000/uL (130-400); RED BLOOD CELL COUNT 5.07 mill/uL (4.7-6.1); RED CELL DISTRIBUTION WIDTH 22.1 % (11.6-14.6)
[2017-10-03 05:54] LABS: CHLORIDE 103 mEq/L (98-107)
[2017-10-03] MEDS: AMIODARONE HCL 200 MG TABLET PO SCH ×3 (06:27→21:55)
[2017-10-03] MEDS: FUROSEMIDE 40MG/4ML VIAL IVP SCH ×2 (06:27→17:04)
[2017-10-03] MEDS: ENOXAPARIN 40MG/0.4ML SYR SUBCUT SCH ×2 (08:11→20:27)
[2017-10-03] MEDS: FAMOTIDINE 20MG/2ML VIAL IV SCH ×2 (08:11→20:26)
[2017-10-03] MEDS: POTASSIUM CHLORIDE 20MEQ TABLET SR PO SCH (08:11)
[2017-10-03] MEDS: MAGNESIUM GLUCONATE 500MG TABLET NG SCH ×2 (08:11→17:04)
[2017-10-03] MEDS: POTASSIUM CHLORIDE 20MEQ/PACKET PO SCH (08:11)
[2017-10-03 08:43] LABS: BG BASE EXCESS 11.4 mmol/L (-2.0-2.0); BG BILEVEL POS AIRWAY PRESSURE 15/5; BG CARBOXYHEMOGLOBIN 1.2 % (0.5-1.5); BG DEOXYHEMOGLOBIN 5.8 % (0.0-5.0); BG FRACTION INSPIRED OXYGEN 50; BG HCO3 ACT 37.8 mmol/L (22.0-26.0); BG METHEMOGLOBIN 0.1 % (0.0-1.5); BG OXYGEN SATURATION 94.1 % (92.0-98.5); BG OXYHEMOGLOBIN 92.9 % (94.0-97.0); BG PCO2 58.4 mmHg (35.0-45.0); BG PH 7.429 (7.350-7.450); BG PO2 68.7 mmHg (75.0-100.0); BG SAMPLE SITE RIGHT RADIAL; BG TOTAL HEMOGLOBIN 11.9 g/dL (12.0-18.0); BG VENT MODE MASK - BIPAP; BG VENT RATE 18 set
[2017-10-03] MEDS: LACTULOSE 20G/30ML UDC PO SCH (09:00)
[2017-10-03] MEDS: METRONIDAZOLE 500 MG PREMIX 100 ML IV SCH ×3 (09:18→21:55)
[2017-10-03] MEDS ORDERED: IPRATROPIUM/ALBUTEROL 0.5-3(2.5)MG/3ML NEB HHN PRN (11:00)
[2017-10-03] MEDS ORDERED: LACTULOSE 20G/30ML UDC PO PRN (11:15)
[2017-10-03 11:18] LABS: PLATELET ESTIMATE SLIGHTLY INCREASED
[2017-10-03] MEDS: ACETAMINOPHEN 325MG TABLET PO PRN (11:21)
[2017-10-03] MEDS: THROAT LOZENGES-BENZOCAINE/MENTH/CETYLPYRD CL LOZENGES MM PRN (20:27)
[2017-10-04] VITALS (47 sets, daily range): BP systolic 93–136; BP diastolic 39–87
[2017-10-04] MEDS: IPRATROPIUM/ALBUTEROL 0.5-3(2.5)MG/3ML NEB HHN SCH ×7 (00:08→23:55)
[2017-10-04] MEDS: THROAT LOZENGES-BENZOCAINE/MENTH/CETYLPYRD CL LOZENGES MM PRN ×2 (00:10→05:52)
[2017-10-04] MEDS: CEFEPIME 1,000 MG in DEXTROSE 5% WATER 50 ML IV SCH ×3 (00:10→23:39)
[2017-10-04] MEDS: METOCLOPRAMIDE 10MG/10 ML UDC GT SCH ×5 (00:10→23:39)
[2017-10-04] MEDS: METRONIDAZOLE 500 MG PREMIX 100 ML IV SCH ×3 (05:52→21:08)
[2017-10-04] MEDS: AMIODARONE HCL 200 MG TABLET PO SCH ×2 (05:52→14:04)
[2017-10-04 06:04] LABS: HEMATOCRIT. 35.3 % (42.0-52.0); MEAN CORPUSCULAR HEMOGLOBIN 20.3 pg (28.0-32.0); MEAN CORPUSCULAR VOLUME 71.6 fL (80.0-94.0); PLATELET 517 x1000/uL (130-400); RED BLOOD CELL COUNT 4.93 mill/uL (4.7-6.1)
[2017-10-04] MEDS: FUROSEMIDE 40MG/4ML VIAL IVP SCH ×2 (06:24→18:15)
[2017-10-04 06:30] LABS: CHLORIDE 101 mEq/L (98-107)
[2017-10-04 06:40] LABS: PHOSPHORUS 3.4 mg/dL (2.5-4.9)
[2017-10-04 08:01] LABS: BG BASE EXCESS 7.9 mmol/L (-2.0-2.0); BG BILEVEL POS AIRWAY PRESSURE ST=15/5; BG CARBOXYHEMOGLOBIN 1.2 % (0.5-1.5); BG DEOXYHEMOGLOBIN 6.4 % (0.0-5.0); BG FRACTION INSPIRED OXYGEN 50; BG HCO3 ACT 33.5 mmol/L (22.0-26.0); BG METHEMOGLOBIN 0.2 % (0.0-1.5); BG OXYGEN SATURATION 93.5 % (92.0-98.5); BG OXYHEMOGLOBIN 92.2 % (94.0-97.0); BG PH 7.435 (7.350-7.450); BG PO2 67.6 mmHg (75.0-100.0); BG PRESSURE SUPPORT 10; BG SAMPLE SITE RIGHT BRACHIAL; BG VENT MODE MASK - BIPAP; BG VENT RATE 18 set
[2017-10-04] MEDS: MAGNESIUM GLUCONATE 500MG TABLET NG SCH ×2 (09:50→17:06)
[2017-10-04] MEDS: FAMOTIDINE 20MG/2ML VIAL IV SCH ×2 (09:50→21:08)
[2017-10-04] MEDS: POTASSIUM CHLORIDE 20MEQ TABLET SR PO SCH (09:50)
[2017-10-04] MEDS: ENOXAPARIN 40MG/0.4ML SYR SUBCUT SCH ×2 (09:52→21:08)
[2017-10-04 11:12] LABS: PLATELET ESTIMATE INCREASED
[2017-10-05] VITALS (24 sets, daily range): BP systolic 102–130; BP diastolic 54–89
[2017-10-05] MEDS: IPRATROPIUM/ALBUTEROL 0.5-3(2.5)MG/3ML NEB HHN SCH ×5 (04:11→20:43)
[2017-10-05] MEDS: METRONIDAZOLE 500 MG PREMIX 100 ML IV SCH ×3 (05:17→21:31)
[2017-10-05] MEDS: METOCLOPRAMIDE 10MG/10 ML UDC GT SCH ×4 (05:17→23:22)
[2017-10-05 05:45] LABS: BASOPHILS % 1.2 % (0.0-2.0); EOSINOPHILS % 1.4 % (0.0-5.0); HEMATOCRIT. 34.5 % (42.0-52.0); HEMOGLOBIN. 9.8 g/dL (14.0-18.0); LYMPHOCYTES % 10.1 % (20.0-50.0); MEAN CORPUSCULAR HEMOGLOBIN 20.5 pg (28.0-32.0); MEAN CORPUSCULAR VOLUME 72.2 fL (80.0-94.0); MEAN PLATELET VOLUME 9.4 fl (7.4-10.4); MONOCYTES % 14.8 % (2.0-8.0); NEUTROPHILS % 72.5 % (40.0-76.0); PLATELET 552 x1000/uL (130-400); RED BLOOD CELL COUNT 4.78 mill/uL (4.7-6.1); RED CELL DISTRIBUTION WIDTH 21.7 % (11.6-14.6)
[2017-10-05] MEDS: FUROSEMIDE 40MG/4ML VIAL IVP SCH ×2 (06:24→18:06)
[2017-10-05 06:45] LABS: CHLORIDE 98 mEq/L (98-107)
[2017-10-05 08:18] LABS: BG BASE EXCESS 11.1 mmol/L (-2.0-2.0); BG BILEVEL POS AIRWAY PRESSURE ST=15/5; BG CARBOXYHEMOGLOBIN 1.4 % (0.5-1.5); BG DEOXYHEMOGLOBIN 6.7 % (0.0-5.0); BG FRACTION INSPIRED OXYGEN 50; BG OXYGEN SATURATION 93.2 % (92.0-98.5); BG OXYHEMOGLOBIN 91.9 % (94.0-97.0); BG PCO2 54.9 mmHg (35.0-45.0); BG PH 7.446 (7.350-7.450); BG PO2 67.6 mmHg (75.0-100.0); BG PRESSURE SUPPORT 10; BG SAMPLE SITE RIGHT BRACHIAL; BG TOTAL HEMOGLOBIN 12.1 g/dL (12.0-18.0); BG VENT MODE MASK - BIPAP; BG VENT RATE 18 set
[2017-10-05] MEDS: FAMOTIDINE 20MG/2ML VIAL IV SCH ×2 (08:59→21:31)
[2017-10-05] MEDS: POTASSIUM CHLORIDE 20MEQ TABLET SR PO SCH (09:00)
[2017-10-05] MEDS ORDERED: MAGNESIUM 2 G PREMIX 50 ML IV SCH (09:00)
[2017-10-05] MEDS: MAGNESIUM GLUCONATE 500MG TABLET NG SCH ×2 (09:00→18:05)
[2017-10-05] MEDS: ENOXAPARIN 40MG/0.4ML SYR SUBCUT SCH ×2 (09:00→21:31)
[2017-10-05] MEDS ORDERED: ETOMIDATE 2MG/ML 10ML VIAL IV ONE (10:21)
[2017-10-05] MEDS ORDERED: SUCCINYLCHOLINE CHLORIDE 200MG/10ML VIAL IV ONE (10:21)
[2017-10-05] MEDS: CEFEPIME 1,000 MG in DEXTROSE 5% WATER 50 ML IV SCH ×2 (12:15→23:22)
[2017-10-05] MEDS: AMIODARONE HCL 200 MG TABLET PO SCH ×2 (14:06→21:31)
[2017-10-05 23:52] LABS: BG BASE EXCESS 9.3 mmol/L (-2.0-2.0); BG BILEVEL POS AIRWAY PRESSURE 15/5; BG CARBOXYHEMOGLOBIN 1.1 % (0.5-1.5); BG DEOXYHEMOGLOBIN 6.9 % (0.0-5.0); BG FRACTION INSPIRED OXYGEN 50; BG HCO3 ACT 34.8 mmol/L (22.0-26.0); BG METHEMOGLOBIN 0.3 % (0.0-1.5); BG OXYHEMOGLOBIN 91.7 % (94.0-97.0); BG PCO2 51.1 mmHg (35.0-45.0); BG PH 7.451 (7.350-7.450); BG PRESSURE SUPPORT 15; BG SAMPLE SITE LEFT RADIAL; BG TOTAL HEMOGLOBIN 12.4 g/dL (12.0-18.0); BG VENT MODE MASK - BIPAP; BG VENT RATE 14 set
[2017-10-06] VITALS (43 sets, daily range): BP systolic 94–144; BP diastolic 47–103
[2017-10-06] MEDS: IPRATROPIUM/ALBUTEROL 0.5-3(2.5)MG/3ML NEB HHN SCH ×5 (00:59→20:24)
[2017-10-06] MEDS: PROPOFOL 10MG/ML 100ML 100 ML IV PRN ×7 (03:59→21:11)
[2017-10-06 04:47] LABS: BG BASE EXCESS 8.8 mmol/L (-2.0-2.0); BG FRACTION INSPIRED OXYGEN 100; BG HCO3 ACT 35.1 mmol/L (22.0-26.0); BG METHEMOGLOBIN 0.4 % (0.0-1.5); BG OXYHEMOGLOBIN 97.6 % (94.0-97.0); BG PCO2 56.7 mmHg (35.0-45.0); BG PIP 35 cmH2O; BG PO2 139.4 mmHg (75.0-100.0); BG SAMPLE SITE LEFT RADIAL; BG TIDAL VOLUME(mL) 550 mL; BG TOTAL HEMOGLOBIN 12.1 g/dL (12.0-18.0); BG VENT MODE VENT - A/C; BG VENT RATE 14 set
[2017-10-06 04:49] LABS: BASOPHILS % 0.9 % (0.0-2.0); EOSINOPHILS % 1.3 % (0.0-5.0); HEMATOCRIT. 37.8 % (42.0-52.0); HEMOGLOBIN. 10.8 g/dL (14.0-18.0); LYMPHOCYTES % 9.9 % (20.0-50.0); MEAN CORPUSCULAR HEMOGLOBIN 20.7 pg (28.0-32.0); MEAN CORPUSCULAR VOLUME 72.2 fL (80.0-94.0); MEAN PLATELET VOLUME 9.4 fl (7.4-10.4); MONOCYTES % 12.7 % (2.0-8.0); NEUTROPHILS % 75.2 % (40.0-76.0); PLATELET 601 x1000/uL (130-400); RED BLOOD CELL COUNT 5.24 mill/uL (4.7-6.1); RED CELL DISTRIBUTION WIDTH 22.2 % (11.6-14.6)
[2017-10-06] MEDS: METRONIDAZOLE 500 MG PREMIX 100 ML IV SCH ×3 (05:03→21:43)
[2017-10-06] MEDS: METOCLOPRAMIDE 10MG/10 ML UDC GT SCH ×3 (05:03→18:29)
[2017-10-06 05:13] LABS: CHLORIDE 98 mEq/L (98-107); T4 FREE 1.28 ng/dL (0.76-1.46)
[2017-10-06] MEDS ORDERED: MORPHINE SULFATE 2 MG/ML CPJ (NOT FOR IM USE) IV PRN (07:00)
[2017-10-06] MEDS: POTASSIUM CHLORIDE 20MEQ TABLET SR PO SCH (08:26)
[2017-10-06] MEDS: AMIODARONE HCL 200 MG TABLET PO SCH ×2 (08:26→18:29)
[2017-10-06] MEDS: FUROSEMIDE 40MG/4ML VIAL IVP SCH ×2 (08:26→18:28)
[2017-10-06] MEDS: MAGNESIUM GLUCONATE 500MG TABLET NG SCH ×2 (08:26→18:29)
[2017-10-06] MEDS: ENOXAPARIN 40MG/0.4ML SYR SUBCUT SCH ×2 (08:27→20:52)
[2017-10-06 08:48] LABS: BG CARBOXYHEMOGLOBIN 1.3 % (0.5-1.5); BG DEOXYHEMOGLOBIN 1.3 % (0.0-5.0); BG FRACTION INSPIRED OXYGEN 80; BG HCO3 ACT 35.2 mmol/L (22.0-26.0); BG OXYGEN SATURATION 98.7 % (92.0-98.5); BG OXYHEMOGLOBIN 97.4 % (94.0-97.0); BG PCO2 55.9 mmHg (35.0-45.0); BG PH 7.417 (7.350-7.450); BG PO2 115.5 mmHg (75.0-100.0); BG SAMPLE SITE RIGHT BRACHIAL; BG TIDAL VOLUME(mL) 550 mL; BG TOTAL HEMOGLOBIN 11.8 g/dL (12.0-18.0); BG VENT MODE VENT - A/C; BG VENT RATE 14 set
[2017-10-06 11:13] LABS: AMMONIA 45 uMol/L (<32)
[2017-10-06] MEDS: CEFEPIME 1,000 MG in DEXTROSE 5% WATER 50 ML IV SCH (12:59)
[2017-10-06] MEDS: FAMOTIDINE 20MG/2ML VIAL IV SCH ×2 (12:59→20:52)
[2017-10-07] VITALS (43 sets, daily range): BP systolic 88–145; BP diastolic 33–75
[2017-10-07] MEDS: IPRATROPIUM/ALBUTEROL 0.5-3(2.5)MG/3ML NEB HHN SCH ×6 (00:06→20:48)
[2017-10-07] MEDS: METOCLOPRAMIDE 10MG/10 ML UDC GT SCH ×4 (00:23→17:31)
[2017-10-07] MEDS: PROPOFOL 10MG/ML 100ML 100 ML IV PRN ×2 (00:23→04:02)
[2017-10-07] MEDS: CEFEPIME 1,000 MG in DEXTROSE 5% WATER 50 ML IV SCH ×2 (00:23→12:01)
[2017-10-07] MEDS: METRONIDAZOLE 500 MG PREMIX 100 ML IV SCH ×3 (05:39→21:06)
[2017-10-07 07:24] LABS: BG BASE EXCESS 6.9 mmol/L (-2.0-2.0); BG CARBOXYHEMOGLOBIN 0.5 % (0.5-1.5); BG DEOXYHEMOGLOBIN 6.8 % (0.0-5.0); BG HCO3 ACT 31.9 mmol/L (22.0-26.0); BG OXYGEN SATURATION 93.2 % (92.0-98.5); BG OXYHEMOGLOBIN 92.7 % (94.0-97.0); BG PCO2 47.2 mmHg (35.0-45.0); BG PH 7.448 (7.350-7.450); BG PO2 66.7 mmHg (75.0-100.0); BG SAMPLE SITE RIGHT RADIAL; BG TIDAL VOLUME(mL) 550 mL; BG TOTAL HEMOGLOBIN 11.5 g/dL (12.0-18.0); BG VENT MODE VENT - A/C; BG VENT RATE 14 set
[2017-10-07] MEDS ORDERED: PROPOFOL 10MG/ML 100ML 100 ML IV PRN (08:00)
[2017-10-07] MEDS: MAGNESIUM GLUCONATE 500MG TABLET NG SCH ×2 (08:35→17:31)
[2017-10-07] MEDS: AMIODARONE HCL 200 MG TABLET PO SCH ×2 (08:35→17:31)
[2017-10-07] MEDS: POTASSIUM CHLORIDE 20MEQ TABLET SR PO SCH (08:35)
[2017-10-07] MEDS: FAMOTIDINE 20MG/2ML VIAL IV SCH ×2 (08:35→21:08)
[2017-10-07] MEDS: FUROSEMIDE 40MG/4ML VIAL IVP SCH ×2 (08:35→17:31)
[2017-10-07] MEDS: ENOXAPARIN 40MG/0.4ML SYR SUBCUT SCH ×2 (08:36→21:08)
[2017-10-07] MEDS: LACTULOSE 20G/30ML UDC PO SCH (10:02)
[2017-10-07] MEDS ORDERED: MORPHINE SULFATE 4 MG/ML CPJ (NOT FOR IM USE) IV PRN (10:15)
[2017-10-07] MEDS: LEVOTHYROXINE SODIUM 50MCG TABLET PO SCH (11:11)
[2017-10-07 11:45] LABS: BG BASE EXCESS 8.6 mmol/L (-2.0-2.0); BG CARBOXYHEMOGLOBIN 0.9 % (0.5-1.5); BG HCO3 ACT 33.4 mmol/L (22.0-26.0); BG METHEMOGLOBIN 0.2 % (0.0-1.5); BG OXYGEN SATURATION 93.9 % (92.0-98.5); BG OXYHEMOGLOBIN 92.9 % (94.0-97.0); BG PH 7.469 (7.350-7.450); BG PO2 68.8 mmHg (75.0-100.0); BG SAMPLE SITE RIGHT RADIAL; BG TIDAL VOLUME(mL) 550 mL; BG TOTAL HEMOGLOBIN 11.9 g/dL (12.0-18.0); BG VENT MODE VENT - SIMV; BG VENT RATE 10 set
[2017-10-07 12:13] LABS: HEMATOCRIT. 36.6 % (42.0-52.0); HEMOGLOBIN. 10.4 g/dL (14.0-18.0); MEAN CORPUSCULAR HEMOGLOBIN 20.6 pg (28.0-32.0); MEAN PLATELET VOLUME 9.8 fl (7.4-10.4); PLATELET 586 x1000/uL (130-400); RED BLOOD CELL COUNT 5.02 mill/uL (4.7-6.1); RED CELL DISTRIBUTION WIDTH 23.3 % (11.6-14.6)
[2017-10-07 12:30] LABS: CHLORIDE 99 mEq/L (98-107); PHOSPHORUS 3.2 mg/dL (2.5-4.9)
[2017-10-07 13:23] LABS: PLATELET ESTIMATE INCREASED
[2017-10-08] VITALS (42 sets, daily range): BP systolic 98–147; BP diastolic 45–91
[2017-10-08] MEDS: METOCLOPRAMIDE 10MG/10 ML UDC GT SCH ×4 (00:13→17:40)
[2017-10-08] MEDS: CEFEPIME 1,000 MG in DEXTROSE 5% WATER 50 ML IV SCH ×2 (00:13→11:16)
[2017-10-08] MEDS: IPRATROPIUM/ALBUTEROL 0.5-3(2.5)MG/3ML NEB HHN SCH ×6 (00:14→20:45)
[2017-10-08] MEDS: METRONIDAZOLE 500 MG PREMIX 100 ML IV SCH ×3 (05:51→21:31)
[2017-10-08] MEDS: FUROSEMIDE 40MG/4ML VIAL IVP SCH ×2 (08:21→17:39)
[2017-10-08] MEDS: LEVOTHYROXINE SODIUM 50MCG TABLET PO SCH (08:21)
[2017-10-08] MEDS: AMIODARONE HCL 200 MG TABLET PO SCH ×2 (08:21→17:38)
[2017-10-08] MEDS: LACTULOSE 20G/30ML UDC PO SCH (08:22)
[2017-10-08] MEDS: POTASSIUM CHLORIDE 20MEQ TABLET SR PO SCH (08:22)
[2017-10-08] MEDS: MAGNESIUM GLUCONATE 500MG TABLET NG SCH ×2 (08:22→17:38)
[2017-10-08] MEDS: ENOXAPARIN 40MG/0.4ML SYR SUBCUT SCH ×2 (08:23→21:31)
[2017-10-08] MEDS: FAMOTIDINE 20MG/2ML VIAL IV SCH ×2 (08:36→21:31)
[2017-10-08] MEDS: POTASSIUM CHLORIDE 20MEQ/PACKET PO SCH (08:40)
[2017-10-08 08:42] LABS: BG BASE EXCESS 8.3 mmol/L (-2.0-2.0); BG CARBOXYHEMOGLOBIN 0.9 % (0.5-1.5); BG DEOXYHEMOGLOBIN 6.3 % (0.0-5.0); BG FRACTION INSPIRED OXYGEN 50; BG METHEMOGLOBIN 0.1 % (0.0-1.5); BG OXYGEN SATURATION 93.6 % (92.0-98.5); BG OXYHEMOGLOBIN 92.7 % (94.0-97.0); BG PCO2 46.2 mmHg (35.0-45.0); BG PH 7.472 (7.350-7.450); BG PO2 68.8 mmHg (75.0-100.0); BG SAMPLE SITE RIGHT BRACHIAL; BG TIDAL VOLUME(mL) 550 mL; BG TOTAL HEMOGLOBIN 12.1 g/dL (12.0-18.0); BG VENT MODE VENT - A/C; BG VENT RATE 14 set
[2017-10-08] MEDS ORDERED: ACETAZOLAMIDE 250MG TABLET PO NR (09:45)
[2017-10-08 10:16] LABS: HEMATOCRIT 36.9 % (42.0-52.0); HEMOGLOBIN 10.6 g/dL (14.0-18.0); MEAN CORPUSCULAR HEMOGLOBIN 20.9 pg (28.0-32.0); MEAN CORPUSCULAR VOLUME 72.8 fL (80.0-94.0); PLATELET 609 x1000/uL (130-400); RED BLOOD CELL COUNT 5.07 mill/uL (4.7-6.1); RED CELL DISTRIBUTION WIDTH 23.9 % (11.6-14.6)
[2017-10-08 10:38] LABS: CHLORIDE 102 mEq/L (98-107)
[2017-10-08 13:47] LABS: BG BASE EXCESS 6.8 mmol/L (-2.0-2.0); BG CARBOXYHEMOGLOBIN 0.9 % (0.5-1.5); BG FRACTION INSPIRED OXYGEN 40; BG METHEMOGLOBIN 0.2 % (0.0-1.5); BG OXYGEN SATURATION 93.9 % (92.0-98.5); BG OXYHEMOGLOBIN 92.9 % (94.0-97.0); BG PCO2 47.8 mmHg (35.0-45.0); BG PH 7.443 (7.350-7.450); BG PRESSURE SUPPORT 8; BG SAMPLE SITE RIGHT BRACHIAL; BG TOTAL HEMOGLOBIN 12.2 g/dL (12.0-18.0); BG VENT MODE VENT - CPAP
[2017-10-09] VITALS (57 sets, daily range): BP systolic 69–165; BP diastolic 41–106
[2017-10-09] MEDS: IPRATROPIUM/ALBUTEROL 0.5-3(2.5)MG/3ML NEB HHN SCH ×6 (00:27→21:10)
[2017-10-09] MEDS: CEFEPIME 1,000 MG in DEXTROSE 5% WATER 50 ML IV SCH ×3 (04:59→23:26)
[2017-10-09] MEDS: METOCLOPRAMIDE 10MG/10 ML UDC GT SCH ×5 (05:01→23:25)
[2017-10-09] MEDS: METRONIDAZOLE 500 MG PREMIX 100 ML IV SCH ×3 (05:53→21:55)
[2017-10-09 08:19] LABS: CHLORIDE 103 mEq/L (98-107)
[2017-10-09] MEDS: FUROSEMIDE 40MG/4ML VIAL IVP SCH ×2 (09:22→17:28)
[2017-10-09] MEDS: LEVOTHYROXINE SODIUM 50MCG TABLET PO SCH (09:22)
[2017-10-09] MEDS: AMIODARONE HCL 200 MG TABLET PO SCH ×2 (09:23→17:29)
[2017-10-09] MEDS: MAGNESIUM GLUCONATE 500MG TABLET NG SCH ×2 (09:23→17:30)
[2017-10-09] MEDS: FAMOTIDINE 20MG/2ML VIAL IV SCH ×2 (09:24→21:56)
[2017-10-09] MEDS: LACTULOSE 20G/30ML UDC PO SCH (09:24)
[2017-10-09] MEDS: POTASSIUM CHLORIDE 20MEQ/PACKET PO SCH (09:24)
[2017-10-09] MEDS: ENOXAPARIN 40MG/0.4ML SYR SUBCUT SCH ×2 (09:27→21:56)
[2017-10-09 13:42] LABS: BG BASE EXCESS 4.8 mmol/L (-2.0-2.0); BG CARBOXYHEMOGLOBIN 1.2 % (0.5-1.5); BG DEOXYHEMOGLOBIN 6.5 % (0.0-5.0); BG FRACTION INSPIRED OXYGEN 40; BG HCO3 ACT 30.9 mmol/L (22.0-26.0); BG OXYGEN SATURATION 93.4 % (92.0-98.5); BG OXYHEMOGLOBIN 92.3 % (94.0-97.0); BG PH 7.392 (7.350-7.450); BG PO2 72.5 mmHg (75.0-100.0); BG SAMPLE SITE RIGHT RADIAL; BG TOTAL HEMOGLOBIN 13.6 g/dL (12.0-18.0); BG VENT MODE T-TUBE
[2017-10-09] MEDS: BUDESONIDE 0.5MG/2ML NEB HHN SCH (16:00)
[2017-10-09] MEDS: ACETAMINOPHEN 325MG TABLET PO PRN (23:26)
[2017-10-10] VITALS (27 sets, daily range): BP systolic 83–164; BP diastolic 38–105
[2017-10-10] MEDS: IPRATROPIUM/ALBUTEROL 0.5-3(2.5)MG/3ML NEB HHN SCH ×7 (00:15→21:18)
[2017-10-10] MEDS: BUDESONIDE 0.5MG/2ML NEB HHN SCH ×3 (04:22→21:18)
[2017-10-10] MEDS: METRONIDAZOLE 500 MG PREMIX 100 ML IV SCH ×3 (05:55→21:18)
[2017-10-10] MEDS: METOCLOPRAMIDE 10MG/10 ML UDC GT SCH ×2 (05:55→11:59)
[2017-10-10] MEDS: FUROSEMIDE 40MG/4ML VIAL IVP SCH ×2 (08:33→16:27)
[2017-10-10 08:34] LABS: BASOPHILS % 0.9 % (0.0-2.0); EOSINOPHILS % 1.4 % (0.0-5.0); HEMATOCRIT. 41.5 % (42.0-52.0); HEMOGLOBIN. 11.9 g/dL (14.0-18.0); LYMPHOCYTES % 9.4 % (20.0-50.0); MEAN CORPUSCULAR VOLUME 73.1 fL (80.0-94.0); MEAN PLATELET VOLUME 9.2 fl (7.4-10.4); MONOCYTES % 11.7 % (2.0-8.0); NEUTROPHILS % 76.6 % (40.0-76.0); PLATELET 614 x1000/uL (130-400); RED BLOOD CELL COUNT 5.67 mill/uL (4.7-6.1); RED CELL DISTRIBUTION WIDTH 24.5 % (11.6-14.6)
[2017-10-10] MEDS: MAGNESIUM GLUCONATE 500MG TABLET NG SCH ×2 (08:34→16:26)
[2017-10-10] MEDS: AMIODARONE HCL 200 MG TABLET PO SCH ×2 (08:34→18:10)
[2017-10-10] MEDS: LACTULOSE 20G/30ML UDC PO SCH (08:34)
[2017-10-10] MEDS: LEVOTHYROXINE SODIUM 50MCG TABLET PO SCH (08:34)
[2017-10-10] MEDS: FAMOTIDINE 20MG/2ML VIAL IV SCH ×2 (08:34→20:31)
[2017-10-10] MEDS: POTASSIUM CHLORIDE 20MEQ/PACKET PO SCH (08:34)
[2017-10-10] MEDS: ENOXAPARIN 40MG/0.4ML SYR SUBCUT SCH ×2 (08:35→20:32)
[2017-10-10 08:59] LABS: CHLORIDE 105 mEq/L (98-107)
[2017-10-10 10:32] LABS: BG CARBOXYHEMOGLOBIN 1.2 % (0.5-1.5); BG DEOXYHEMOGLOBIN 5.9 % (0.0-5.0); BG FRACTION INSPIRED OXYGEN 40; BG HCO3 ACT 31.4 mmol/L (22.0-26.0); BG METHEMOGLOBIN 0.2 % (0.0-1.5); BG OXYHEMOGLOBIN 92.7 % (94.0-97.0); BG PCO2 48.6 mmHg (35.0-45.0); BG PH 7.428 (7.350-7.450); BG PO2 72.5 mmHg (75.0-100.0); BG SAMPLE SITE LEFT RADIAL; BG TOTAL HEMOGLOBIN 13.2 g/dL (12.0-18.0); BG VENT MODE MASK - AEROSOL
[2017-10-10] MEDS: CEFEPIME 1,000 MG in DEXTROSE 5% WATER 50 ML IV SCH (11:59)
[2017-10-11] VITALS (29 sets, daily range): BP systolic 98–146; BP diastolic 50–95
[2017-10-11] MEDS: IPRATROPIUM/ALBUTEROL 0.5-3(2.5)MG/3ML NEB HHN SCH ×6 (00:44→20:23)
[2017-10-11 08:26] LABS: BG BASE EXCESS 4.6 mmol/L (-2.0-2.0); BG CARBOXYHEMOGLOBIN 1.5 % (0.5-1.5); BG DEOXYHEMOGLOBIN 5.2 % (0.0-5.0); BG FRACTION INSPIRED OXYGEN 32; BG HCO3 ACT 30.3 mmol/L (22.0-26.0); BG METHEMOGLOBIN 0.2 % (0.0-1.5); BG OXYGEN SATURATION 94.7 % (92.0-98.5); BG OXYHEMOGLOBIN 93.1 % (94.0-97.0); BG PH 7.401 (7.350-7.450); BG PO2 74.4 mmHg (75.0-100.0); BG SAMPLE SITE RIGHT BRACHIAL; BG TOTAL HEMOGLOBIN 12.8 g/dL (12.0-18.0); BG VENT MODE NASAL CANNULA
[2017-10-11] MEDS: BUDESONIDE 0.5MG/2ML NEB HHN SCH ×2 (08:55→20:24)
[2017-10-11] MEDS: MAGNESIUM GLUCONATE 500MG TABLET NG SCH ×2 (08:59→16:31)
[2017-10-11] MEDS: AMIODARONE HCL 200 MG TABLET PO SCH ×2 (08:59→17:21)
[2017-10-11] MEDS: POTASSIUM CHLORIDE 20MEQ/PACKET PO SCH (08:59)
[2017-10-11] MEDS: FAMOTIDINE 20MG/2ML VIAL IV SCH ×2 (08:59→20:30)
[2017-10-11] MEDS: LEVOTHYROXINE SODIUM 50MCG TABLET PO SCH (08:59)
[2017-10-11] MEDS: LACTULOSE 20G/30ML UDC PO SCH (08:59)
[2017-10-11] MEDS: FUROSEMIDE 100MG/10ML VIAL IVP SCH ×2 (09:00→17:21)
[2017-10-11] MEDS: ENOXAPARIN 40MG/0.4ML SYR SUBCUT SCH ×2 (09:02→20:30)
[2017-10-12] VITALS (30 sets, daily range): BP systolic 92–141; BP diastolic 28–85
[2017-10-12] MEDS: IPRATROPIUM/ALBUTEROL 0.5-3(2.5)MG/3ML NEB HHN SCH ×6 (00:17→20:09)
[2017-10-12 06:36] LABS: BASOPHILS % 1.2 % (0.0-2.0); EOSINOPHILS % 3.7 % (0.0-5.0); HEMOGLOBIN. 11.5 g/dL (14.0-18.0); LYMPHOCYTES % 18.7 % (20.0-50.0); MEAN CORPUSCULAR HEMOGLOBIN 21.4 pg (28.0-32.0); MEAN CORPUSCULAR VOLUME 72.5 fL (80.0-94.0); MEAN PLATELET VOLUME 9.5 fl (7.4-10.4); NEUTROPHILS % 62.4 % (40.0-76.0); PLATELET 501 x1000/uL (130-400); RED BLOOD CELL COUNT 5.38 mill/uL (4.7-6.1); RED CELL DISTRIBUTION WIDTH 23.8 % (11.6-14.6)
[2017-10-12 07:00] LABS: CHLORIDE 95 mEq/L (98-107)
[2017-10-12] MEDS: BUDESONIDE 0.5MG/2ML NEB HHN SCH ×2 (07:56→20:09)
[2017-10-12] MEDS: FUROSEMIDE 100MG/10ML VIAL IVP SCH ×2 (07:59→16:18)
[2017-10-12] MEDS: FAMOTIDINE 20MG/2ML VIAL IV SCH ×2 (08:00→20:30)
[2017-10-12] MEDS: MAGNESIUM GLUCONATE 500MG TABLET NG SCH ×2 (08:00→16:18)
[2017-10-12] MEDS: LEVOTHYROXINE SODIUM 50MCG TABLET PO SCH (08:01)
[2017-10-12] MEDS: AMIODARONE HCL 200 MG TABLET PO SCH ×2 (08:01→17:28)
[2017-10-12] MEDS: POTASSIUM CHLORIDE 20MEQ/PACKET PO SCH (08:02)
[2017-10-12] MEDS: LACTULOSE 20G/30ML UDC PO SCH (08:02)
[2017-10-12] MEDS: ENOXAPARIN 40MG/0.4ML SYR SUBCUT SCH ×2 (08:02→20:30)
[2017-10-13] VITALS (15 sets, daily range): BP systolic 109–143; BP diastolic 46–92
[2017-10-13] MEDS: IPRATROPIUM/ALBUTEROL 0.5-3(2.5)MG/3ML NEB HHN SCH ×6 (00:25→20:55)
[2017-10-13] MEDS: LEVOTHYROXINE SODIUM 50MCG TABLET PO SCH (06:30)
[2017-10-13] MEDS: AMIODARONE HCL 200 MG TABLET PO SCH (08:50)
[2017-10-13] MEDS: FAMOTIDINE 20MG/2ML VIAL IV SCH ×2 (08:50→20:28)
[2017-10-13] MEDS: POTASSIUM CHLORIDE 20MEQ/PACKET PO SCH (08:50)
[2017-10-13] MEDS: FUROSEMIDE 100MG/10ML VIAL IVP SCH ×2 (08:50→16:26)
[2017-10-13] MEDS: LACTULOSE 20G/30ML UDC PO SCH (08:50)
[2017-10-13] MEDS: ENOXAPARIN 40MG/0.4ML SYR SUBCUT SCH ×2 (08:51→20:32)
[2017-10-13] MEDS: MAGNESIUM GLUCONATE 500MG TABLET NG SCH ×2 (09:00→16:26)
[2017-10-13 13:28] LABS: BG BASE EXCESS 6.6 mmol/L (-2.0-2.0); BG CARBOXYHEMOGLOBIN 1.2 % (0.5-1.5); BG DEOXYHEMOGLOBIN 12.4 % (0.0-5.0); BG FRACTION INSPIRED OXYGEN 21; BG HCO3 ACT 31.7 mmol/L (22.0-26.0); BG METHEMOGLOBIN 0.2 % (0.0-1.5); BG OXYGEN SATURATION 87.4 % (92.0-98.5); BG OXYHEMOGLOBIN 86.2 % (94.0-97.0); BG PCO2 47.2 mmHg (35.0-45.0); BG PH 7.445 (7.350-7.450); BG SAMPLE SITE LEFT RADIAL; BG TOTAL HEMOGLOBIN 12.5 g/dL (12.0-18.0); BG VENT MODE ROOM AIR
[2017-10-13] MEDS: CARVEDILOL 3.125 MG TABLET PO SCH (20:28)
[2017-10-14] VITALS (16 sets, daily range): BP systolic 92–155; BP diastolic 44–96
[2017-10-14] MEDS: IPRATROPIUM/ALBUTEROL 0.5-3(2.5)MG/3ML NEB HHN SCH ×6 (00:35→20:26)
[2017-10-14] MEDS: FUROSEMIDE 100MG/10ML VIAL IVP SCH (06:22)
[2017-10-14] MEDS: LEVOTHYROXINE SODIUM 50MCG TABLET PO SCH (06:22)
[2017-10-14 06:38] LABS: HEMATOCRIT. 38.3 % (42.0-52.0); HEMOGLOBIN. 11.6 g/dL (14.0-18.0); MEAN CORPUSCULAR HEMOGLOBIN 21.9 pg (28.0-32.0); MEAN PLATELET VOLUME 9.6 fl (7.4-10.4); PLATELET 483 x1000/uL (130-400); RED BLOOD CELL COUNT 5.32 mill/uL (4.7-6.1); RED CELL DISTRIBUTION WIDTH 23.4 % (11.6-14.6)
[2017-10-14 07:07] LABS: CHLORIDE 95 mEq/L (98-107)
[2017-10-14] MEDS: LACTULOSE 20G/30ML UDC PO SCH (08:24)
[2017-10-14] MEDS: POTASSIUM CHLORIDE 20MEQ/PACKET PO SCH (08:26)
[2017-10-14] MEDS: MAGNESIUM GLUCONATE 500MG TABLET NG SCH ×2 (08:26→17:15)
[2017-10-14] MEDS: FAMOTIDINE 20MG/2ML VIAL IV SCH ×2 (08:27→20:40)
[2017-10-14] MEDS: CARVEDILOL 3.125 MG TABLET PO SCH ×2 (08:27→20:40)
[2017-10-14] MEDS: AMIODARONE HCL 200 MG TABLET PO SCH (08:27)
[2017-10-14] MEDS: ENOXAPARIN 40MG/0.4ML SYR SUBCUT SCH ×2 (08:27→20:40)
[2017-10-14 14:38] LABS: PLATELET ESTIMATE INCREASED
[2017-10-14] MEDS: FUROSEMIDE 80MG TABLET PO SCH (17:15)
[2017-10-15] VITALS (10 sets, daily range): BP systolic 94–138; BP diastolic 48–79
[2017-10-15] MEDS: IPRATROPIUM/ALBUTEROL 0.5-3(2.5)MG/3ML NEB HHN SCH ×4 (00:20→10:55)
[2017-10-15] MEDS: LEVOTHYROXINE SODIUM 50MCG TABLET PO SCH (06:01)
[2017-10-15 07:30] LABS: CHLORIDE 96 mEq/L (98-107)
[2017-10-15] MEDS: LACTULOSE 20G/30ML UDC PO SCH (09:00)
[2017-10-15] MEDS: FUROSEMIDE 80MG TABLET PO SCH (09:28)
[2017-10-15] MEDS: AMIODARONE HCL 200 MG TABLET PO SCH (09:30)
[2017-10-15] MEDS: MAGNESIUM GLUCONATE 500MG TABLET NG SCH (09:30)
[2017-10-15] MEDS: POTASSIUM CHLORIDE 20MEQ/PACKET PO SCH (09:31)
[2017-10-15] MEDS: FAMOTIDINE 20MG/2ML VIAL IV SCH (09:31)
[2017-10-15] MEDS: ENOXAPARIN 40MG/0.4ML SYR SUBCUT SCH (09:36)
[2017-10-15] MEDS: CARVEDILOL 3.125 MG TABLET PO SCH (09:38)
[2017-10-15 10:52] LABS: BG BASE EXCESS 4.1 mmol/L (-2.0-2.0); BG CARBOXYHEMOGLOBIN 0.7 % (0.5-1.5); BG FRACTION INSPIRED OXYGEN 21; BG HCO3 ACT 28.5 mmol/L (22.0-26.0); BG OXYGEN SATURATION 90.8 % (92.0-98.5); BG OXYHEMOGLOBIN 89.3 % (94.0-97.0); BG PCO2 41.7 mmHg (35.0-45.0); BG PH 7.452 (7.350-7.450); BG PO2 61.4 mmHg (75.0-100.0); BG SAMPLE SITE LEFT RADIAL; BG TOTAL HEMOGLOBIN 12.7 g/dL (12.0-18.0); BG VENT MODE ROOM AIR
[2017-10-15] MEDS ORDERED: AMI2 PO (13:17)
[2017-10-15] MEDS ORDERED: FURO-151 PO (13:17)
[2017-10-15] MEDS ORDERED: LEVO50TA8 PO (13:17)
[2017-10-15] MEDS ORDERED: COR3 PO (13:17)
[2017-10-15] MEDS ORDERED: ENOXAPARIN 30MG/0.3ML SYR SUBCUT SCH (21:00)
== END 2017-10-15 14:55 | disposition home or self-care (01) | DRG 720 ==
LOC: ER 11:26 → 3WST 12:17 → EDBEDREQSVC 14:01 → CANRESERV 14:03 → ENRESERV 14:03 → EDBEDREQSVC 16:19 → ENRESERV 16:22 → CVICU 09-25 13:26 → 3WST 10-13 05:07
PROVIDERS: ADMIT Internal Medicine; ATTEND Internal Medicine
PROC: 5A09457 Assistance with Respiratory Ventilation, 24-96 Consecutive Hours, Continuous Positive Airway Pressure (ICD-10-PCS; 2017-09-23)
PROC: 5A1955Z Respiratory Ventilation, Greater than 96 Consecutive Hours (ICD-10-PCS; 2017-09-26)
PROC: 30233L1 Transfusion of Nonautologous Fresh Plasma into Peripheral Vein, Percutaneous Approach (ICD-10-PCS; principal; 2017-09-28)
PROC: 30233K1 Transfusion of Nonautologous Frozen Plasma into Peripheral Vein, Percutaneous Approach (ICD-10-PCS; 2017-09-28)
PROC: 0W993ZZ Drainage of Right Pleural Cavity, Percutaneous Approach (ICD-10-PCS; 2017-09-28)
PROC: 02HV33Z Insertion of Infusion Device into Superior Vena Cava, Percutaneous Approach (ICD-10-PCS; 2017-09-29)
PROC: B548ZZA Ultrasonography of Superior Vena Cava, Guidance (ICD-10-PCS; 2017-09-29)
PROC: 5A09457 Assistance with Respiratory Ventilation, 24-96 Consecutive Hours, Continuous Positive Airway Pressure (ICD-10-PCS; 2017-10-01)
PROC: 5A1945Z Respiratory Ventilation, 24-96 Consecutive Hours (ICD-10-PCS; 2017-10-06)
DX: A41.9 Sepsis, unspecified organism (principal); I49.01 Ventricular fibrillation; I21.4 Non-ST elevation (NSTEMI) myocardial infarction; J69.0 Pneumonitis due to inhalation of food and vomit; J96.01 Acute respiratory failure with hypoxia; J96.02 Acute respiratory failure with hypercapnia; E87.4 Mixed disorder of acid-base balance; E72.20 Disorder of urea cycle metabolism, unspecified; R57.9 Shock, unspecified; I50.43 Acute on chronic combined systolic (congestive) and diastolic (congestive) heart failure; J84.9 Interstitial pulmonary disease, unspecified; E46 Unspecified protein-calorie malnutrition; D68.9 Coagulation defect, unspecified; I11.0 Hypertensive heart disease with heart failure; I42.9 Cardiomyopathy, unspecified; E11.65 Type 2 diabetes mellitus with hyperglycemia; E87.1 Hypo-osmolality and hyponatremia; F15.90 Other stimulant use, unspecified, uncomplicated; I44.2 Atrioventricular block, complete; E66.2 Morbid (severe) obesity with alveolar hypoventilation; D50.9 Iron deficiency anemia, unspecified; E03.9 Hypothyroidism, unspecified; E78.1 Pure hyperglyceridemia; I49.3 Ventricular premature depolarization; K59.00 Constipation, unspecified; T50.2X5A Adverse effect of carbonic-anhydrase inhibitors, benzothiadiazides and other diuretics, initial encounter; Z86.74 Personal history of sudden cardiac arrest; Z83.3 Family history of diabetes mellitus; Z68.38 Body mass index [BMI] 38.0-38.9, adult; Z91.14 Patient's other noncompliance with medication regimen; I31.3 Pericardial effusion (noninflammatory)
CPT/HCPCS: 31500; 32555; 36415; 36569; 36600; 71045; 71250; 76604; 76937; 78580; 80048; 80053; 80061; 80305; 81003; 82040; 82140; 82375; 82465; 82533; 82550; 82553; 82805; 82962; 83036; 83605; 83615; 83735; 83880; 83930; 83935; 84100; 84439; 84443; 84478; 84484; 84550; 85025; 85027; 85379; 85610; 85730; 86705; 86709; 86803; 86850; 86900; 86927; 87040; 87070; 87086; 87205; 87340; 87804; 88108; 88312; 89050; 92610; 93005; 93306; 93970; 94003; 94640; 94644; 94660; 96374; 97110; 97112; 97116; 97162; 97163; 97166; 97530; 97535; 99291; A4216; C1725; J0171; J0282; J0330; J0692; J1650; J1940; J2250; J2270; J2405; J2704; J3010; J3475; J3480; J3490; J7030; J7040; J7050; J7060; J7620; J7626; J8597; P9017

== ENCOUNTER 2018-11-18 11:17 | Inpatient (IN) | payer MEDICAID ==
[~2018-11-18] VITALS: Ht 165.1 cm; Wt 193.5 kg
[~2018-11-18 11:17] MED LIST: AMI2 PO; COR3 PO; FURO-151 PO; LEVO50TA8 PO
[2018-11-18 11:50] LABS: HEMATOCRIT. 44.9 % (42.0-52.0); HEMOGLOBIN. 13.1 g/dL (14.0-18.0); MEAN CORPUSCULAR HEMOGLOBIN 22.8 pg (28.0-32.0); MEAN CORPUSCULAR VOLUME 78.2 fL (80.0-94.0); PLATELET 393 x1000/uL (130-400); RED BLOOD CELL COUNT 5.74 mill/uL (4.7-6.1)
[2018-11-18 11:58] LABS: CHLORIDE 101 mEq/L (98-107)
[2018-11-18 12:52] LABS: PLATELET ESTIMATE NORMAL
[2018-11-18] MEDS ORDERED: ENOXAPARIN 100MG/ML SYR SUBCUT ONE (13:00)
[2018-11-18] MEDS ORDERED: FUROSEMIDE 40MG/4ML VIAL IVP ONE (13:15)
[2018-11-18] MEDS ORDERED: ENALAPRIL 2.5MG/2ML VIAL 2ML IV ONE (13:15)
[2018-11-18] MEDS ORDERED: MAGNESIUM/ALUMINUM HYDROXIDE/SIMETHICONE 30ML UDC PO PRN (13:45)
[2018-11-18] MEDS ORDERED: ACETAMINOPHEN 325MG TABLET PO PRN (13:45)
[2018-11-18] MEDS ORDERED: CLONIDINE 0.1MG TABLET PO PRN (13:45)
[2018-11-18] MEDS ORDERED: ONDANSETRON HCL 4MG/2ML INJ IV PRN (13:45)
[2018-11-18] MEDS ORDERED: GUAIFENESIN 200MG/10ML SUGAR FREE UDC PO PRN (13:45)
[2018-11-18] MEDS ORDERED: IPRATROPIUM/ALBUTEROL 0.5-3(2.5)MG/3ML NEB INH PRN (13:45)
[2018-11-18] MEDS ORDERED: HYDROCODONE/ACETAMINOPHEN 5/325MG TABLET PO PRN (13:45)
[2018-11-18] MEDS ORDERED: DOCUSATE SODIUM 100MG CAPSULE PO PRN (13:45)
[2018-11-18 14:23] LABS: PHOSPHORUS 2.5 mg/dL (2.5-4.9)
[2018-11-18 14:51] LABS: CLARITY URINE CLEAR (CLEAR); COLOR URINE YELLOW (YELLOW); KETONES URINE NEGATIVE (NEGATIVE); LEUKOCYTE ESTERASE URINE NEGATIVE (NEGATIVE); NITRITE URINE NEGATIVE (NEGATIVE); OCCULT BLOOD URINE NEGATIVE (NEGATIVE); PH URINE 7.5 (4.5-8.0); PROTEIN URINE 1+ (NEGATIVE); SPECIFIC GRAVITY URINE 1.009 (1.005-1.030)
[2018-11-18 23:30] VITALS: BP 133/79
[2018-11-19] VITALS (11 sets, daily range): BP systolic 92–148; BP diastolic 53–101
[2018-11-19] MEDS ORDERED: DEXTROSE 50% WATER 50ML SYRINGE IV PRN
[2018-11-19 06:20] LABS: BASOPHILS % 0.9 % (0.0-2.0); CHLORIDE 98 mEq/L (98-107); EOSINOPHILS % 2.5 % (0.0-5.0); HEMATOCRIT. 42.1 % (42.0-52.0); HEMOGLOBIN. 12.4 g/dL (14.0-18.0); LYMPHOCYTES % 12.3 % (20.0-50.0); MEAN CORPUSCULAR HEMOGLOBIN 22.7 pg (28.0-32.0); MEAN CORPUSCULAR VOLUME 77.2 fL (80.0-94.0); MEAN PLATELET VOLUME 8.9 fl (7.4-10.4); NEUTROPHILS % 70.3 % (40.0-76.0); PLATELET 397 x1000/uL (130-400); RED BLOOD CELL COUNT 5.45 mill/uL (4.7-6.1); RED CELL DISTRIBUTION WIDTH 18.7 % (11.6-14.6)
[2018-11-19 06:35] LABS: LDL CHOLESTEROL 69 mg/dL (5-100)
[2018-11-19 06:36] LABS: HDL CHOLESTEROL 17 mg/dL (40-59)
[2018-11-19] MEDS: INSULIN LISPRO 100 UNITS/ML SUBCUT SCH ×4 (08:00→21:00)
[2018-11-19] MEDS: BLOOD SUGAR DIAGNOSTIC STRIP TEST SCH ×4 (08:29→21:00)
[2018-11-19] MEDS ORDERED: CARVEDILOL 6.25 MG TABLET PO SCH (09:00)
[2018-11-19] MEDS ORDERED: FUROSEMIDE 40MG/4ML VIAL IVP SCH (09:00)
[2018-11-19] MEDS: LISINOPRIL 5MG TABLET PO SCH ×2 (09:36→20:57)
[2018-11-19] MEDS: POTASSIUM CHLORIDE 20MEQ TABLET SR PO SCH (11:28)
[2018-11-19] MEDS: ENOXAPARIN 40MG/0.4ML SYR SUBCUT SCH ×2 (12:04→20:57)
[2018-11-19] MEDS: FUROSEMIDE 40MG/4ML VIAL IVP SCH (17:56)
[2018-11-19] MEDS: CARVEDILOL 12.5MG TABLET PO SCH (21:04)
[2018-11-20] VITALS (13 sets, daily range): BP systolic 96–146; BP diastolic 42–92
[2018-11-20 06:10] LABS: BASOPHILS % 1.2 % (0.0-2.0); EOSINOPHILS % 4.5 % (0.0-5.0); HEMATOCRIT. 42.8 % (42.0-52.0); HEMOGLOBIN. 12.4 g/dL (14.0-18.0); LYMPHOCYTES % 12.8 % (20.0-50.0); MEAN CORPUSCULAR HEMOGLOBIN 22.5 pg (28.0-32.0); MEAN CORPUSCULAR VOLUME 77.9 fL (80.0-94.0); MEAN PLATELET VOLUME 8.8 fl (7.4-10.4); MONOCYTES % 12.7 % (2.0-8.0); NEUTROPHILS % 68.8 % (40.0-76.0); PLATELET 381 x1000/uL (130-400); RED BLOOD CELL COUNT 5.49 mill/uL (4.7-6.1); RED CELL DISTRIBUTION WIDTH 18.8 % (11.6-14.6)
[2018-11-20 06:24] LABS: CHLORIDE 98 mEq/L (98-107)
[2018-11-20] MEDS: BLOOD SUGAR DIAGNOSTIC STRIP TEST SCH ×4 (07:30→21:00)
[2018-11-20] MEDS: INSULIN LISPRO 100 UNITS/ML SUBCUT SCH ×4 (08:00→21:00)
[2018-11-20] MEDS: LISINOPRIL 5MG TABLET PO SCH ×2 (08:26→22:09)
[2018-11-20] MEDS: POTASSIUM CHLORIDE 20MEQ TABLET SR PO SCH (08:26)
[2018-11-20] MEDS: FUROSEMIDE 40MG/4ML VIAL IVP SCH (08:26)
[2018-11-20] MEDS: ENOXAPARIN 40MG/0.4ML SYR SUBCUT SCH ×2 (08:29→22:10)
[2018-11-20] MEDS: CARVEDILOL 12.5MG TABLET PO SCH ×2 (08:32→20:49)
[2018-11-20] MEDS: FUROSEMIDE 100MG/10ML VIAL IVP SCH (18:13)
[2018-11-21] VITALS (11 sets, daily range): BP systolic 89–150; BP diastolic 45–90
[2018-11-21 05:57] LABS: BASOPHILS % 0.9 % (0.0-2.0); EOSINOPHILS % 3.7 % (0.0-5.0); HEMATOCRIT. 42.3 % (42.0-52.0); HEMOGLOBIN. 12.3 g/dL (14.0-18.0); MEAN CORPUSCULAR HEMOGLOBIN 22.7 pg (28.0-32.0); MEAN CORPUSCULAR VOLUME 78.1 fL (80.0-94.0); MEAN PLATELET VOLUME 9.1 fl (7.4-10.4); MONOCYTES % 14.1 % (2.0-8.0); NEUTROPHILS % 63.3 % (40.0-76.0); PLATELET 384 x1000/uL (130-400); RED BLOOD CELL COUNT 5.41 mill/uL (4.7-6.1); RED CELL DISTRIBUTION WIDTH 18.8 % (11.6-14.6)
[2018-11-21 06:47] LABS: CHLORIDE 96 mEq/L (98-107)
[2018-11-21] MEDS: BLOOD SUGAR DIAGNOSTIC STRIP TEST SCH ×4 (07:30→21:47)
[2018-11-21] MEDS: INSULIN LISPRO 100 UNITS/ML SUBCUT SCH ×4 (08:00→21:00)
[2018-11-21] MEDS: FUROSEMIDE 100MG/10ML VIAL IVP SCH ×2 (09:41→16:52)
[2018-11-21] MEDS: LISINOPRIL 5MG TABLET PO SCH ×2 (09:48→21:00)
[2018-11-21] MEDS: CARVEDILOL 12.5MG TABLET PO SCH ×2 (09:48→21:00)
[2018-11-21] MEDS: POTASSIUM CHLORIDE 20MEQ TABLET SR PO SCH (09:48)
[2018-11-21] MEDS: ENOXAPARIN 40MG/0.4ML SYR SUBCUT SCH ×2 (09:48→21:47)
[2018-11-22] VITALS (12 sets, daily range): BP systolic 86–148; BP diastolic 46–95
[2018-11-22] MEDS: INSULIN LISPRO 100 UNITS/ML SUBCUT SCH ×4 (07:47→20:01)
[2018-11-22] MEDS: BLOOD SUGAR DIAGNOSTIC STRIP TEST SCH ×4 (07:47→19:53)
[2018-11-22] MEDS: FUROSEMIDE 100MG/10ML VIAL IVP SCH ×2 (08:06→17:04)
[2018-11-22] MEDS: LISINOPRIL 5MG TABLET PO SCH ×2 (10:07→19:52)
[2018-11-22] MEDS: CARVEDILOL 12.5MG TABLET PO SCH ×2 (10:08→20:01)
[2018-11-22] MEDS: POTASSIUM CHLORIDE 20MEQ TABLET SR PO SCH (10:08)
[2018-11-22] MEDS: ENOXAPARIN 40MG/0.4ML SYR SUBCUT SCH ×2 (10:08→19:52)
[2018-11-23] VITALS (14 sets, daily range): BP systolic 80–135; BP diastolic 46–99
[2018-11-23 06:02] LABS: HEMATOCRIT. 41.4 % (42.0-52.0); HEMOGLOBIN. 12.1 g/dL (14.0-18.0); MEAN CORPUSCULAR HEMOGLOBIN 22.8 pg (28.0-32.0); MEAN CORPUSCULAR VOLUME 78.3 fL (80.0-94.0); MEAN PLATELET VOLUME 8.9 fl (7.4-10.4); PLATELET 321 x1000/uL (130-400); RED BLOOD CELL COUNT 5.28 mill/uL (4.7-6.1); RED CELL DISTRIBUTION WIDTH 18.8 % (11.6-14.6)
[2018-11-23] MEDS: BLOOD SUGAR DIAGNOSTIC STRIP TEST SCH ×4 (06:04→21:00)
[2018-11-23] MEDS: INSULIN LISPRO 100 UNITS/ML SUBCUT SCH ×4 (06:04→21:00)
[2018-11-23] MEDS: FUROSEMIDE 100MG/10ML VIAL IVP SCH ×2 (06:04→17:58)
[2018-11-23 07:36] LABS: CHLORIDE 95 mEq/L (98-107)
[2018-11-23] MEDS: POTASSIUM CHLORIDE 20MEQ TABLET SR PO SCH (09:28)
[2018-11-23] MEDS: ENOXAPARIN 40MG/0.4ML SYR SUBCUT SCH ×2 (09:29→22:56)
[2018-11-23] MEDS: LISINOPRIL 5MG TABLET PO SCH ×2 (09:31→21:00)
[2018-11-23] MEDS: CARVEDILOL 12.5MG TABLET PO SCH ×2 (09:33→21:00)
[2018-11-23 13:02] LABS: PLATELET ESTIMATE NORMAL
[2018-11-23] MEDS ORDERED: POTASSIUM CHLORIDE 20MEQ TABLET SR PO NR (15:00)
[2018-11-24] VITALS (15 sets, daily range): BP systolic 89–165; BP diastolic 45–100
[2018-11-24 06:21] LABS: HEMATOCRIT. 42.4 % (42.0-52.0); HEMOGLOBIN. 12.3 g/dL (14.0-18.0); MEAN CORPUSCULAR HEMOGLOBIN 22.7 pg (28.0-32.0); MEAN CORPUSCULAR VOLUME 78.1 fL (80.0-94.0); MEAN PLATELET VOLUME 9.3 fl (7.4-10.4); PLATELET 337 x1000/uL (130-400); RED BLOOD CELL COUNT 5.43 mill/uL (4.7-6.1); RED CELL DISTRIBUTION WIDTH 19.2 % (11.6-14.6)
[2018-11-24] MEDS: FUROSEMIDE 100MG/10ML VIAL IVP SCH ×2 (06:35→17:45)
[2018-11-24] MEDS: BLOOD SUGAR DIAGNOSTIC STRIP TEST SCH ×4 (07:30→21:30)
[2018-11-24] MEDS: INSULIN LISPRO 100 UNITS/ML SUBCUT SCH ×4 (08:00→21:00)
[2018-11-24 08:01] LABS: CHLORIDE 97 mEq/L (98-107)
[2018-11-24 08:06] LABS: PHOSPHORUS 3.7 mg/dL (2.5-4.9)
[2018-11-24 09:26] LABS: PLATELET ESTIMATE NORMAL
[2018-11-24] MEDS: POTASSIUM CHLORIDE 20MEQ TABLET SR PO SCH (10:27)
[2018-11-24] MEDS: LISINOPRIL 5MG TABLET PO SCH ×2 (10:28→21:32)
[2018-11-24] MEDS: CARVEDILOL 12.5MG TABLET PO SCH (10:28)
[2018-11-24] MEDS: ENOXAPARIN 40MG/0.4ML SYR SUBCUT SCH ×2 (10:31→21:31)
[2018-11-24] MEDS ORDERED: POTA20TA82 PO (12:03)
[2018-11-24] MEDS ORDERED: FURO10VI3 PO (12:03)
[2018-11-24] MEDS ORDERED: LISI-186 PO (12:03)
[2018-11-24] MEDS ORDERED: COR12 PO (12:03)
[2018-11-24 14:04] LABS: BG BASE EXCESS 11.7 mmol/L (-2.0-2.0); BG CARBOXYHEMOGLOBIN 1.9 % (0.5-1.5); BG DEOXYHEMOGLOBIN 14.5 % (0.0-5.0); BG FRACTION INSPIRED OXYGEN 21; BG HCO3 ACT 38.7 mmol/L (22.0-26.0); BG METHEMOGLOBIN 0.2 % (0.0-1.5); BG OXYGEN SATURATION 85.2 % (92.0-98.5); BG OXYHEMOGLOBIN 83.4 % (94.0-97.0); BG PCO2 61.3 mmHg (35.0-45.0); BG PH 7.418 (7.350-7.450); BG PO2 53.1 mmHg (75.0-100.0); BG SAMPLE SITE RIGHT RADIAL; BG TOTAL HEMOGLOBIN 13.3 g/dL (12.0-18.0); BG VENT MODE 21
[2018-11-24] MEDS: CARVEDILOL 6.25 MG TABLET PO SCH (21:00)
[2018-11-25] VITALS (10 sets, daily range): BP systolic 103–144; BP diastolic 51–74
[2018-11-25] MEDS: FUROSEMIDE 100MG/10ML VIAL IVP SCH ×2 (06:16→18:01)
[2018-11-25] MEDS: BLOOD SUGAR DIAGNOSTIC STRIP TEST SCH ×4 (07:30→20:13)
[2018-11-25] MEDS: INSULIN LISPRO 100 UNITS/ML SUBCUT SCH ×4 (08:00→20:22)
[2018-11-25] MEDS: POTASSIUM CHLORIDE 20MEQ TABLET SR PO SCH (08:51)
[2018-11-25] MEDS: ENOXAPARIN 40MG/0.4ML SYR SUBCUT SCH ×2 (08:51→20:14)
[2018-11-25] MEDS: LISINOPRIL 5MG TABLET PO SCH ×2 (08:51→20:16)
[2018-11-25] MEDS: CARVEDILOL 6.25 MG TABLET PO SCH ×2 (08:52→20:16)
[2018-11-25 15:40] LABS: BG BASE EXCESS 9.5 mmol/L (-2.0-2.0); BG DEOXYHEMOGLOBIN 4.1 % (0.0-5.0); BG FRACTION INSPIRED OXYGEN 28; BG HCO3 ACT 37.8 mmol/L (22.0-26.0); BG METHEMOGLOBIN 0.2 % (0.0-1.5); BG OXYGEN SATURATION 95.8 % (92.0-98.5); BG OXYHEMOGLOBIN 93.7 % (94.0-97.0); BG PH 7.356 (7.350-7.450); BG PO2 81.3 mmHg (75.0-100.0); BG SAMPLE SITE RIGHT RADIAL; BG TOTAL HEMOGLOBIN 13.9 g/dL (12.0-18.0); BG VENT MODE NASAL CANNULA
[2018-11-26] VITALS (7 sets, daily range): BP systolic 100–142; BP diastolic 56–88
[2018-11-26 06:01] LABS: HEMATOCRIT. 45.5 % (42.0-52.0); MEAN CORPUSCULAR HEMOGLOBIN 22.6 pg (28.0-32.0); MEAN PLATELET VOLUME 9.7 fl (7.4-10.4); PLATELET 317 x1000/uL (130-400); RED BLOOD CELL COUNT 5.76 mill/uL (4.7-6.1); RED CELL DISTRIBUTION WIDTH 19.6 % (11.6-14.6)
[2018-11-26] MEDS: FUROSEMIDE 100MG/10ML VIAL IVP SCH ×2 (06:35→18:55)
[2018-11-26] MEDS: BLOOD SUGAR DIAGNOSTIC STRIP TEST SCH ×3 (06:37→17:30)
[2018-11-26 06:55] LABS: CHLORIDE 99 mEq/L (98-107)
[2018-11-26] MEDS: INSULIN LISPRO 100 UNITS/ML SUBCUT SCH ×3 (08:00→18:00)
[2018-11-26] MEDS: LISINOPRIL 5MG TABLET PO SCH (08:45)
[2018-11-26] MEDS: POTASSIUM CHLORIDE 20MEQ TABLET SR PO SCH (08:45)
[2018-11-26] MEDS: CARVEDILOL 6.25 MG TABLET PO SCH (08:46)
[2018-11-26] MEDS: ENOXAPARIN 40MG/0.4ML SYR SUBCUT SCH (08:47)
[2018-11-26 12:14] LABS: PLATELET ESTIMATE NORMAL
== END 2018-11-26 23:52 | disposition home or self-care (01) | DRG 194 ==
LOC: ER 11:17 → 5EST 13:13 → EDBEDREQ 13:16 → ENRESERV 20:26
PROVIDERS: ADMIT Internal Medicine; ATTEND Internal Medicine
DX: I13.0 Hypertensive heart and chronic kidney disease with heart failure and stage 1 through stage 4 chronic kidney disease, or unspecified chronic kidney disease (principal); J96.01 Acute respiratory failure with hypoxia; E43 Unspecified severe protein-calorie malnutrition; I27.20 Pulmonary hypertension, unspecified; I07.1 Rheumatic tricuspid insufficiency; E66.2 Morbid (severe) obesity with alveolar hypoventilation; Z68.45 Body mass index [BMI] 70 or greater, adult; I50.43 Acute on chronic combined systolic (congestive) and diastolic (congestive) heart failure; R01.1 Cardiac murmur, unspecified; I42.9 Cardiomyopathy, unspecified; N48.89 Other specified disorders of penis; N18.9 Chronic kidney disease, unspecified; I50.82 Biventricular heart failure; N50.89 Other specified disorders of the male genital organs; Z86.74 Personal history of sudden cardiac arrest; I25.2 Old myocardial infarction; Z71.3 Dietary counseling and surveillance
CPT/HCPCS: 36415; 36600; 71045; 76870; 78580; 80048; 80061; 82375; 82550; 82553; 82805; 82962; 83036; 83735; 83880; 84100; 84443; 84484; 85379; 93005; 93306; 93970; 93976; 96374; 96375; 97116; 97162; 97166; 97530; 97535; 99285; J1650; J1815; J1940; J3490; J7620; A4315